=== PATIENT | female | born 1935 | race Hispanic/Latino ===

== ENCOUNTER 2018-01-13 08:43 | Outpatient (CLI) | payer MEDICARE, BC | END 2018-01-13 08:44 | disposition home or self-care (01) | LOC: BICMRI 08:43 | PROVIDERS: ATTEND Nurse Practitioner Family | DX: M47.26 Other spondylosis with radiculopathy, lumbar region (principal); E27.9 Disorder of adrenal gland, unspecified | CPT/HCPCS: 72148 ==

== ENCOUNTER 2018-02-05 15:54 | Outpatient (CLI) | payer MEDICARE, BC ==
--- NOTE | 2018-02-05 16:24 | RAD ---
RADIOGRAPH LEFT HIP TWO VIEWS: Date: 02-05-18 History: 83-year-old female with left hip pain. FINDINGS: Femoral head contour is maintained. Hip joint space is maintained. Minimal or no subcapital osteophyt osis. No large subchondral cysts. No fracture or dislocation. Degenerative disc disease noted in the lower lumbar spine. IMPRESSION: 1. Negative left hip. 2. Lower lumbar spondylosis. POS: [facility]
--- NOTE | 2018-02-05 16:26 | RAD ---
THREE VIEWS LUMBAR SPINE: History: Low back pain, M54.5 FINDINGS: Lateral, flexion and extension views of the lumbar spine. Images demonstrate five non rib bearing lumbar vertebrae. There is disc space height loss with anteri or and posterior osteophytes at L2-3, L3-4, L4-5, and L5-S1. Findings compatible with changes of spon dylosis. No evidence of reema or retrolisthesis seen on flexion or extension views. Atherosclerotic changes of the abdominal aorta seen. IMPRESSION: Extensive mid and lower lumbar changes of spondylosis. POS: [facility]
== END 2018-02-05 15:55 | disposition home or self-care (01) ==
LOC: TBSIIMAG 15:54
PROVIDERS: ATTEND Neurological Surgery
DX: M54.5 Low back pain (principal); M47.896 Other spondylosis, lumbar region
CPT/HCPCS: 72100

== ENCOUNTER 2018-03-16 10:16 | Outpatient (CLI) | payer MEDICARE, BC ==
[2018-03-16 12:45] LABS: Mean Corpuscular HGB CONC 34.5 g/dL (32.0-36.0); Mean Corpuscular Volume 92.7 fl (81.0-99.0); Mean Platelet Volume 8.1 fL (7.4-10.4); Platelet Count 289 thou/uL (130-400); RBC Distribution Width 11.2 % (11.5-14.5); Red Blood Cell (RBC) Count 3.75 mill/uL (4.20-5.40); White Blood Cell (WBC) Count 8.2 thou/uL (4.8-10.8)
[2018-03-16 12:52] LABS: PTT 29.5 SEC (22.9-36.1)
[2018-03-16 12:53] LABS: Prothrombin Time 13.7 SEC (12.0-14.7)
[2018-03-16 21:14] LABS: Anion Gap 11 mmol/L (10-20); BUN (Urea Nitrogen) 15 mg/dL (9.8-20.1); Calc. Creatinine Clearance 0 mL/min (70-130); Calcium 9.8 mg/dL (7.8-10.44); Carbon Dioxide 26 mmol/L (23-31); Chloride 105 mmol/L (98-107); Estimated GFR-MDRD 53; Glucose 124 mg/dL (83-110); Potassium 3.6 mmol/L (3.5-5.1); Sodium 138 mmol/L (136-145)
--- NOTE | 2018-03-16 23:49 | EKG ---
Test Reason : Blood Pressure : / mmHG Vent. Rate : 069 BPM Atrial Rate : 069 BPM P-R Int : 158 ms QRS Dur : 086 ms QT Int : 416 ms P-R-T Axes : 033 -47 046 degrees QTc Int : 445 ms Normal sinus rhythm Left anterior fascicular block Abnormal ECG When compared with ECG of 26-MAR-2016 07:43, Left anterior fascicular block is now Present Confirmed by REMI RIVAS, SValerie ([id number]) on 03/16/2018 11:49:34 PM Referred By: STACIA Confirmed By:DR. Jarod KHALIL MD
== END 2018-03-16 10:17 | disposition home or self-care (01) ==
LOC: LABBT 10:16
PROVIDERS: ATTEND Neurological Surgery
DX: Z01.812 Encounter for preprocedural laboratory examination (principal); M48.061 Spinal stenosis, lumbar region without neurogenic claudication
CPT/HCPCS: 80048; 85027; 85610; 85730; 93005; 93010

== ENCOUNTER 2018-03-19 05:37 | Inpatient (IN) | payer MEDICARE, BC ==
[2018-03-16 10:42] VITALS: BMI 35.6
[2018-03-19] MEDS ORDERED: Sodium Chloride 0.9% 30 ML ONE (06:17)
[2018-03-19] MEDS ORDERED: Thrombin 5000 UNITS/5 ML VIAL ONE (06:17)
[2018-03-19] MEDS ORDERED: Bupivacaine HCl 0.5%/Epinephrine 1:200,000/PF 30 ml Vial ONE (06:17)
[2018-03-19] MEDS ORDERED: CEFAZOLIN/Water 2 GM/20 ML SYRINGE ONE (06:25)
[2018-03-19] MEDS ORDERED: Famotidine/PF 20 mg/2ml Vial ONE (06:47)
[2018-03-19] MEDS ORDERED: Fentanyl 100 MCG/2 ML VIAL ONE ×2 (06:55→08:31)
--- NOTE | 2018-03-19 07:19 | HP ---
REASON FOR ADMISSION: Lumbar stenosis. Here for surgery. HISTORY OF PRESENT ILLNESS: Ms. Casper is a very pleasant 83-year-old woman whose grandson works in our ICU, comes in with a multiple month history of low back pain and some worsening neurogenic margy ication manifest mostly in L4 and L5 dermatomes on the legs. Anytime she stands for more than a few minutes or walks over 50 yards the pain is made worse. She leans to the right and forward for relief , she gets relief sitting down. MR imaging has revealed some significant lumbar stenosis and we are here to offer her surgery for correction thereof. PAST MEDICAL HISTORY: Diabetes, hypertension, hypothyroidism, hypercholesterolemia, mitral valve pro lapse, diverticulitis, gastroesophageal reflux, carpal tunnel. PAST SURGICAL HISTORY: Includes a hysterectomy, left eye lens implant, right carpal tunnel release, cyst removal, bilateral knee replacements, heart catheterization and colonoscopy. HOSPITALIZATIONS: Hospitalization includes surgeries above as well as for diverticulosis and some bl eeding per rectum. SOCIAL HISTORY: Ms. Casper has a large family here for support this morning. Her grandson works in our ICU. She does not use tobacco or alcohol. She is , retired. FAMILY HISTORY: Significant for diabetes in her mother. There are family members with hypertension, diabetes, heart disease, arthritis and stroke. MEDICATIONS: Amlodipine, isosorbide mononitrate, metformin, pravastatin, levothyroxine, glimepiride, losartan, mupirocin calcium ointment, furosemide, gabapentin. ALLERGIES: IODINE, TINCTURE of BENZOIN. REVIEW OF SYSTEMS: Otherwise negative. PHYSICAL EXAMINATION: GENERAL: Ms. Casper This is awake and alert. She is cognitively intact. Her speech is fluent. NEURO: Cranial nerves are intact. There is no lateralizing motor or sensory deficit. She has marilyn h alternating rapid motions. She has no neglect on either side. There is no lateralizing motor defi cit. She has good strength in iliopsoas, quadriceps, hamstrings, anterior tibia and EHL, there is sl ight loss of dermatomal sensation in the left leg and what appears to be L4/L5 dermatome. Reflexes a re hypoactive, but symmetric. There is no clonus. FINDINGS AND TEST RESULTS: MRI of the lumbar spine shows moderate stenosis at L1-2, severe stenosis L2-L3 and 3-4. She has some lateral recess disease at L4-5 on the left. I offered to decompress the stenotic segments of her lumbar spine. IMPRESSION: Lumbar spinal stenosis, symptomatic causing neurogenic claudication. PLAN: Operative decompression of lumbar spine. We will do that today. We will address levels where there is compression present. Given her past medical history and age, she would likely benefit from overnight observation and an Internal Medicine consultation. When she is safe for activities of [facility] living she can be discharged, perhaps as early as tomorrow.
[2018-03-19] MEDS ORDERED: Albumin 5% 500 ML ONE (10:27)
[2018-03-19] MEDS ORDERED: HYDROmorphone 2 MG/ML VIAL SLOW IVP PRN (11:08)
[2018-03-19] MEDS ORDERED: Ondansetron HCl/PF 4 MG/2 ML Vial IVP PRN ×2 (11:08→11:12)
[2018-03-19] MEDS ORDERED: Promethazine HCl 25 MG/ML VIAL SLOW IVP PRN (11:08)
[2018-03-19] MEDS ORDERED: Promethazine HCl 25 MG/ML VIAL IM PRN (11:08)
[2018-03-19] MEDS ORDERED: Meperidine HCl/PF 25 MG/ML VIAL SLOW IVP PRN (11:08)
[2018-03-19] MEDS ORDERED: Morphine Sulfate 2 MG/ML SYRINGE SLOW IVP PRN (11:08)
[2018-03-19] MEDS ORDERED: Bisacodyl 10 MG SUPP PR PRN (11:12)
[2018-03-19] MEDS ORDERED: Morphine 4 MG/ML VIAL SLOW IVP PRN (11:12)
[2018-03-19] MEDS ORDERED: tiZANidine HCl 4 MG TAB PO PRN (11:12)
[2018-03-19] MEDS ORDERED: Prochlorperazine 10 MG/2 ML VIAL IM PRN (11:12)
[2018-03-19] MEDS ORDERED: Promethazine HCl 12.5 MG SUPP PR PRN (11:12)
[2018-03-19] MEDS ORDERED: traMADol HCl 50 MG TAB PO PRN (11:12)
[2018-03-19] MEDS ORDERED: Promethazine 25 MG TAB PO PRN (11:12)
[2018-03-19] MEDS ORDERED: Acetaminophen/Codeine 30-300mg Tablet PO PRN (11:12)
[2018-03-19 11:14] LABS: Hemoglobin 9.1 g/dL (12.0-16.0)
[2018-03-19] MEDS ORDERED: HYDROmorphone 0.5 MG/0.5 ML SYRINGE ONE (11:24)
[2018-03-19] MEDS ORDERED: Promethazine HCl 25 MG/ML VIAL ONE (12:04)
--- NOTE | 2018-03-19 13:05 | OP ---
DATE OF PROCEDURE: 03/19/2018 SURGEON: Neelima Vaughn M.D. LANGUAGE TUTOR: LACI Romero. PREOPERATIVE INDICATION: Treat pain, prevent neurological deterioration. PREOPERATIVE DIAGNOSES: Multilevel lumbar stenosis with neurogenic claudication affecting the left g reater than right lower extremities. POSTOPERATIVE DIAGNOSIS: Multilevel lumbar stenosis with neurogenic claudication affecting the left greater than right lower extremities. OPERATIVE PROCEDURE: Decompressive laminectomy, medial facetectomy, foraminotomy L1-2, L2-3, L3-4, L 4-5. Operating microscope. PREOPERATIVE MEDICATION: Ancef 2 grams IV. DRAIN NUMBER: Zero. DRAIN TYPE: None. PREOPERATIVE MEDICATION: Ancef 2 grams IV. OPERATIVE DICTATION: The patient was brought to the operating room. General endotracheal anesthesia was induced. The patient was positioned prone on the operating table with her chest and hips suppor deb by gel-filled chest rolls. A lateral fluoro radiograph was used to plan our incision. The lumba r skin was sterilely prepped and draped. We opened with a 10 blade knife and controlled bleeding wit h bipolar and monopolar cautery. We used monopolar cautery to dissect through subcutaneous tissues t o the thoracodorsal fascia. We incised the fascia in the midline and reflected the paraspinal muscle s off the spinous process and lamina of L1, L2, L3, L4 and the top of L5. Self-retaining retractors were placed and a lateral fluoro radiograph confirmed the levels upon which we were operating. We th en used an Adson rongeur to remove the spinous process of L1, L2, L3, L4 and the top of L5. Using Ke rrison rongeurs, we fashioned a laminectomy down the midline. We widened our laminectomy defect by p erforming medial facetectomies and undermining the lateral recesses. At L4-L5, the dura was adherent to the facet joint and we had to bring the operating microscope in the field. Under microscopic navigation and using microsurgical techniques, we freed the dura of its attachment to the lateral portion of the spinal canal. There was a small durotomy that we encountered. Under t he operative microscope we sewed this in interrupted fashion with 6-0 Prolene suture and the closure was watertight by Valsalva. We continued with our decompression and made foraminotomies over the exi ting nerve roots until a Perry ball probe could pass through the lateral recess and out the foramen with the L1, L2, L3, L4 and L5 nerve roots on both sides. We irrigated copiously with bacitracin irr igation. We waxed the bone edges. We irrigated once again with bacitracin irrigation and then reinf orced our dural closure with DuraSeal tissue sealant. We closed the wound in anatomic layers after a pplying vancomycin powder. We applied a sterile dressing. This was a clean case and no contaminatio n.
[2018-03-19] MEDS ORDERED: PHENYLEPHRINE-NS 100 MCG/ML 10 ML SYRINGE ONE (13:54)
[2018-03-19] MEDS ORDERED: PROPOFOL 200 MG/20 ML VIAL ONE (13:54)
[2018-03-19] MEDS ORDERED: Ondansetron HCl/PF 4 MG/2 ML Vial ONE (13:54)
[2018-03-19] MEDS ORDERED: Glycopyrrolate 0.2 MG/ML 5 ML SYRINGE ONE (13:54)
[2018-03-19] MEDS ORDERED: ePHEDrine/0.9% NaCl/PF SYRINGE 50 mg/10 ml ONE (13:54)
[2018-03-19] MEDS ORDERED: Metoclopramide HCl 10 MG/2 ML VIAL ONE (13:54)
[2018-03-19] MEDS ORDERED: Lidocaine 1% PF 5 ML VIAL ONE (13:54)
[2018-03-19] MEDS: CEFAZOLIN/Water 2 GM/20 ML SYRINGE SLOW IVP SCH ×2 (15:16→22:56)
[2018-03-19] MEDS ORDERED: Dextrose 5% in Water 1,000 ML IV PRN (15:44)
[2018-03-19] MEDS ORDERED: Dextrose 50% Abboject 50 ML SYRINGE SLOW IVP PRN (15:44)
[2018-03-19] MEDS ORDERED: Acetaminophen 325 MG TAB PO PRN (15:47)
[2018-03-19] MEDS: Morphine 4 MG/ML VIAL SLOW IVP PRN ×2 (17:25→21:10)
[2018-03-19] MEDS: Sodium Chloride 0.9% 1,000 ML IV SCH (17:28)
[2018-03-20] MEDS: Morphine 4 MG/ML VIAL SLOW IVP PRN ×2 (04:00→06:50)
[2018-03-20 05:27] LABS: #Eosinphils 0.1 thou/uL (0.0-0.7); #Lymphocytes 1.3 thou/uL (1.20-3.40); #Monocytes 0.5 thou/uL (0.11-0.59); #Neutrophils 6.6 thou/uL (1.40-6.50); %Basophils 0.3 % (0.0-1.0); %Eosinophils 1.3 % (0.0-10.0); %Lymphocytes 15.6 % (21.0-51.0); %Monocytes 5.6 % (0.0-10.0); %Neutrophils 77.1 % (42.0-75.0); Hemoglobin 8.9 g/dL (12.0-16.0); Mean Corpuscular HGB CONC 34.4 g/dL (32.0-36.0); Mean Corpuscular Volume 93.2 fl (81.0-99.0); Mean Platelet Volume 7.6 fL (7.4-10.4); Platelet Count 202 thou/uL (130-400); RBC Distribution Width 11.3 % (11.5-14.5); Red Blood Cell (RBC) Count 2.78 mill/uL (4.20-5.40); White Blood Cell (WBC) Count 8.5 thou/uL (4.8-10.8)
[2018-03-20] MEDS: CEFAZOLIN/Water 2 GM/20 ML SYRINGE SLOW IVP SCH (06:41)
[2018-03-20] MEDS: HumaLOG 300 UNITS/3 ML VIAL SC PRN ×3 (06:52→21:10)
[2018-03-20] MEDS: Sodium Chloride 0.9% 1,000 ML IV SCH ×2 (07:18→21:04)
[2018-03-20] MEDS: Amlodipine 10 MG TAB PO SCH (08:57)
[2018-03-20] MEDS: Gabapentin 300 MG CAP PO SCH (08:57)
[2018-03-20] MEDS: Acetaminophen/Codeine 30-300mg Tablet PO PRN ×4 (08:57→21:10)
[2018-03-20] MEDS: Ferrous Sulfate 325 MG TAB PO SCH (08:57)
[2018-03-20] MEDS: Furosemide 20 MG TAB PO SCH (08:57)
[2018-03-20] MEDS: cloNIDine 0.1 MG TAB PO SCH (08:57)
--- NOTE | 2018-03-20 12:20 | PDOC.PN ---
- Subjective Encounter Start Date: 03/20/18 Encounter Start Time: 09:15 Pt doing well, slept well, deneis SOSA, noback pain, no incisional pain. Pt bathed and linens being changed because she bled through her dressing, sheets and pad. No F/C, no N/V/D/C, no CP or SOB. Glucose has been better since starting insulin All systems reviewed and neg x as per HPI - Objective MAR Reviewed: Yes Vital Signs & Weight: Vital Signs (12 hours) Temp Pulse Resp BP Pulse Ox 03/20/18 11:29 99.0 F 77 16 122/72 91 L 03/20/18 08:59 99.7 F H 79 20 125/68 95 03/20/18 08:57 79 03/20/18 07:54 99 F 79 14 03/20/18 03:53 99 F 79 14 134/66 93 L Weight Weight 189 lb I&O: 03/19/18 03/20/18 03/21/18 06:59 06:59 06:59 Intake Total 1450 Output Total 1850 Balance -400 Result Diagrams: 03/20/18 05:03 Additional Labs: Accuchecks 03/20/18 03/20/18 03/19/18 10:46 06:02 20:57 POC Glucose 225 H 171 H 149 H 03/19/18 17:21 POC Glucose 183 H Phys Exam - Physical Examination Constitutional: NAD HEENT: PERRLA, moist MMs, sclera anicteric, oral pharynx no lesions Neck: no nodes, no JVD, supple, full ROM Respiratory: no wheezing, no rales, no rhonchi, clear to auscultation bilateral Cardiovascular: RRR, no significant murmur, no rub Gastrointestinal: soft, non-tender, no distention, positive bowel sounds Musculoskeletal: no edema, pulses present Neurological: non-focal, normal sensation, moves all 4 limbs Lymphatic: no nodes Psychiatric: normal affect, A&O x 3 Skin: no rash, normal turgor, cap refill <2 seconds Deviation from normal: dressing clean, but just changed Dx/Plan (1) DJD (degenerative joint disease) Code(s): M19.90 - UNSPECIFIED OSTEOARTHRITIS, UNSPECIFIED SITE Status: Chronic Qualifiers: Osteoarthritis location: multiple joints Osteoarthritis type: primary Qualified Code(s): M15.0 - Primary generalized (osteo)arthritis (2) Diabetes type 2, controlled Code(s): E11.9 - TYPE 2 DIABETES MELLITUS WITHOUT COMPLICATIONS Status: Chronic Qualifiers: Diabetes mellitus long term care pharmacist insulin use: without long term care pharmacist use Diabetes mellitus complication status: without complication Qualified Code(s): E11.9 - Type 2 diabetes mellitus without complications (3) Diverticulosis Code(s): K57.90 - DVRTCLOS OF INTEST, PART UNSP, W/O PERF OR ABSCESS W/O BLEED Status: Chronic (4) GERD (gastroesophageal reflux disease) Code(s): K21.9 - GASTRO-ESOPHAGEAL REFLUX DISEASE WITHOUT ESOPHAGITIS Status: Chronic (5) HTN (hypertension) Code(s): I10 - ESSENTIAL (PRIMARY) HYPERTENSION Status: Chronic (6) Hypothyroidism Code(s): E03.9 - HYPOTHYROIDISM, UNSPECIFIED Status: Chronic (7) Obesity (BMI 30-39.9) Code(s): E66.9 - OBESITY, UNSPECIFIED Status: Chronic (8) Status post lumbar laminectomy Code(s): Z98.890 - OTHER SPECIFIED POSTPROCEDURAL STATES Status: Acute Comment: post L1-L5 lumbar laminectomy, NSG following - Plan * . restart metformin adn glyburide, continue SSI as needed, continue home BP meds, home ? tomorrow per NSG
--- NOTE | 2018-03-20 12:54 | CON ---
DATE OF CONSULTATION: 03/19/2018 INITIAL INPATIENT CONSULT NOTE TIME OF SERVICE: 15:00 CONSULTING PHYSICIAN: Dr. Vaughn. REASON FOR CONSULTATION: Medical management post-laminectomy. HISTORY OF PRESENT ILLNESS: Ms. Casper is a pleasant 83-year-old female who is posto p day #0 from an L1-L5 laminectomy. She had no noted intraoperative complications other than a dural tear status post repair with good stoppage of CSF leak. Postop, she has a little bit of a headache. She denies any nausea or vomiting. No chest pain or gogo rtness of breath. No fevers or chills. No cough or sputum production. She does have history of diabetes, high blood pressure, hypothyroidism, GERD, peptic ulcer disease an d iron deficiency anemia. We have been asked to manage medically her diabetes and other medical problems. She has no other current complaints. PAST MEDICAL HISTORY: As above. PAST SURGICAL HISTORY: 1. EGD/colon in 03/2016. 2. Carpal tunnel release in 06/2015. 3. Hysterectomy in 1974. 4. Cholecystectomy in 1975. 5. Right TKA in 2011. 6. Left TKA in 2006. 7. Lumbar laminectomy in 2003. 8. Right carpal tunnel release in 2013. 9. PTCA, but no stents in 2015. HOME MEDICATIONS: 1. Naproxen p.r.n. 2. Vitamin D3. 3. Vitamin B12. 4. Isosorbide mononitrate 30 mg p.o. daily. 5. Glimepiride 4 mg p.o. q.a.m. 6. Levothyroxine 50 mcg daily. 7. Aspirin 81 mg daily. 8. Losartan 50 mg p.o. at bedtime. 9. Metformin 1000 mg p.o. b.i.d. with meals. 10. Naproxen 220 mg p.o. as needed, which is currently on hold. 11. Pravachol 40 mg p.o. at bedtime, is currently on hold. 12. Amlodipine 10 mg p.o. q.a.m., continued. 13. Catapres 0.1 mg p.o. q.a.m., continued. 14. Iron sulfate 325 mg daily, continued. 15. Lasix 20 mg p.o. q.a.m., continued. 16. Gabapentin 300 mg p.o. q.a.m. 17. Protonix 40 mg p.o. q.a.m. ALLERGIES: BENZOIN, IODINE, LATEX. All cause rash. FAMILY HISTORY: Negative for clotting or bleeding disorder. No immune dysfunction. SOCIAL HISTORY: Significant for occasional beer. In fact, she asked if she could have one now in a joking manner. Does not smoke. Does not use drugs. FAMILY HISTORY: One of her family members works here in the hospital. REVIEW OF SYSTEMS: All systems reviewed and negative except as stated as per HPI. PHYSICAL EXAMINATION: VITAL SIGNS: Temperature current 97.6, pulse 65, blood pressure is 127/66, respiratory rate 20, O2 s at 98% on room air. GENERAL: She is awake. She is alert. She is oriented x3. She is an obese female wh o appears age appropriate. She appears to be in no acute distress. HEENT: Normocephalic, atraumatic. Pupils equal, round, reactive bilaterally. Mucous membranes mois t. There is no visible lesion, no thrush. NECK: Supple. She has no lymphadenopathy, no JVD, no thyromegaly. She has normal carotid upstrokes without bruits. LUNGS: Clear. She has good air movement. Symmetrical chest excursion. There are no wheezes, no ra les, no rhonchi. No prolonged expiratory phase. CARDIOVASCULAR: Normal S1 and S2. No S3 or S4. She had a regular rhythm with normal rate. No murm urs. ABDOMEN: Soft, it is nontender, nondistended. She had hyperactive bowel sounds present in all quadr ants. There is no rebound, rigidity or guarding. EXTREMITIES: Showed no cyanosis, no clubbing. She had trace pedal edema. SKIN: Warm, moist and well perfused. She has no rashes, no lesions. Her postop dressing is clean, dry, and intact without any strike through. MUSCULOSKELETAL: Normal to inspection. Large joints appear normal. There are no palpable effusions . No inflammation. NEUROLOGIC: Shows cranial nerves II-XII are grossly intact. She has no focal deficits, symmetrical strength 5/5 and normal speech pattern. LABORATORY DATA: Preop labs done showed sodium 138, potassium 3.6, chloride 105, bicarb 26, BUN 15, creatinine 1.01, glucose 127, calcium 9.8. CBC showed a white count of 8.2, hemoglobin is 12.0, hematocrit of 34.8, platelet count is 289,000. Postop her hemoglobin is 9.1. INR was 1.0. ASSESSMENT AND PLAN: 1. Diabetes mellitus type 2, we will continue home medications except for her glimepiride and her me tformin. We will use sliding scale insulin for correction tonight, once she is eating we will restar t her home medications. 2. Hypertension, on losartan, which is currently on hold and Lasix. We will resume those in the mor [place]. 3. Peptic ulcer disease, on Protonix. We will continue. 4. Hypothyroidism, on levothyroxine. We will continue. 5. Iron deficiency anemia, on iron replacement which we will continue. 6. Degenerative joint disease, status post L1 through L5 lumbar laminectomy. Routine postoperative care and immobilized per Neurosurgery Team and disposition per them. The patient plans to go home wi th outpatient therapy. We will defer to then timing.
[2018-03-20] MEDS: metFORMIN 500 MG TAB PO SCH (17:55)
[2018-03-20] MEDS ORDERED: Losartan 25 MG TAB PO SCH (21:00)
[2018-03-21] MEDS: Acetaminophen/Codeine 30-300mg Tablet PO PRN (01:38)
[2018-03-21] MEDS ORDERED: Levothyroxine Sodium 50 MCG TAB PO SCH (06:00)
[2018-03-21] MEDS: HumaLOG 300 UNITS/3 ML VIAL SC PRN (06:36)
[2018-03-21] MEDS ORDERED: Glimepiride 4 MG TAB PO SCH (07:30)
[2018-03-21] MEDS: metFORMIN 500 MG TAB PO SCH (07:38)
[2018-03-21] MEDS: Ferrous Sulfate 325 MG TAB PO SCH (07:38)
[2018-03-21] MEDS: Gabapentin 300 MG CAP PO SCH (07:39)
[2018-03-21] MEDS: cloNIDine 0.1 MG TAB PO SCH ×2 (07:39→08:01)
[2018-03-21] MEDS: Amlodipine 10 MG TAB PO SCH (07:39)
[2018-03-21] MEDS: Furosemide 20 MG TAB PO SCH (07:39)
[2018-03-21 07:51] LABS: #Eosinphils 0.3 thou/uL (0.0-0.7); #Lymphocytes 1.3 thou/uL (1.20-3.40); #Monocytes 0.5 thou/uL (0.11-0.59); #Neutrophils 7.8 thou/uL (1.40-6.50); %Basophils 0.3 % (0.0-1.0); %Eosinophils 2.6 % (0.0-10.0); %Lymphocytes 13.5 % (21.0-51.0); %Monocytes 4.6 % (0.0-10.0); %Neutrophils 79.1 % (42.0-75.0); Hemoglobin 8.6 g/dL (12.0-16.0); Mean Corpuscular HGB CONC 34.2 g/dL (32.0-36.0); Mean Corpuscular Volume 93.7 fl (81.0-99.0); Mean Platelet Volume 7.2 fL (7.4-10.4); Platelet Count 199 thou/uL (130-400); RBC Distribution Width 11.2 % (11.5-14.5); Red Blood Cell (RBC) Count 2.69 mill/uL (4.20-5.40); White Blood Cell (WBC) Count 9.8 thou/uL (4.8-10.8)
--- NOTE | 2018-03-21 09:54 | RAD ---
CHEST 1 VIEW: History Fever. COMPARISON: 03/26/16. FINDINGS: Slight elongation of the aorta. Atherosclerosis of the aortic knob. Normal cardiac silhouette. The pulmonary vessels and hilum are normal. No consolidation or mass. No pneumothorax or osseous abnor malities. Previous left rotator cuff repair is noted. IMPRESSION: 1. No acute cardiopulmonary process. 2. Atherosclerosis of the aorta. POS: [facility]
[2018-03-21 10:11] LABS: Bilirubin Negative (Negative); Blood, Urine Negative (Negative); Clarity CLEAR (Clear); Glucose, Urine (Dipstick) Negative (Negative); Leukocyte Negative (Negative); Nitrite Negative (Negative); Protein, Urine (Dipstick) Negative (Neg-Trace); Specific Gravity, Urine 1.012 (1.002-1.036); Urobilinogen 0.2 mg/dL (0.2-1.0)
[2018-03-21 10:15] LABS: Bacteria/HPF None Seen HPF (None Seen); Hyaline Casts/LPF 0-3 HYALINE CAST LPF (0-3 Hyaline); Pathc Cast-AUWi Flag 0.58 (0-2.49); RBC/HPF 0-3 HPF (0-3); Squamous Epithelial 0-3 HPF (0-3); WBC/HPF 0-3 HPF (0-3)
[2018-03-21] MEDS: Sodium Chloride 0.9% 1,000 ML IV SCH (10:19)
[2018-03-21 11:12] VITALS: BP 122/62; TEMP 99.6
--- NOTE | 2018-03-21 11:38 | PRG ---
DATE OF SERVICE: 03/21/2018 Ms. Casper is now 3 days status post lumbar spine surgery. She had been doing quite well over the l ast 24-48 hours. She had minimal pain. She has been ambulating in the hallways. She did have a low -grade fever this morning. She has had a cursory workup including UA and lab work, which were unrema rkable. She appears nontoxic and looks to feel well. She did have an episode of headache upon her l ast period of ambulation and she has had a small degree of bloody discharge in the bandage. I inspec deb that today and changed the bandage. I see no active leaking. I put a clean bandage on and I hav e elevated the head of her bed and she reports no postural headache at this time. We will continue t o keep the head of bed elevated, and if she has no headache, we will again ambulate her with a possib ility of her heading home either later today or tomorrow.
--- NOTE | 2018-03-21 13:33 | PDOC.PN ---
- Subjective Encounter Start Date: 03/21/18 Encounter Start Time: 10:30 Pt doing well, less bleeding, no fevers at present, 100.6 overnight. mitra po well. No N/V/d/c, no CP, no SOB, O2 sats 85% on RA when sleeping - now or just unknown. Seen by NSG team, keeping tonight All systems reviewed and neg x as per HPI - Objective MAR Reviewed: Yes Vital Signs & Weight: Vital Signs (12 hours) Temp Pulse Pulse Resp BP BP Pulse Ox 03/21/18 11:11 99.6 F 85 18 122/62 96 03/21/18 08:58 82 120/65 03/21/18 08:00 98.4 F 89 16 03/21/18 07:39 89 03/21/18 04:00 100.6 F H 89 16 111/64 93 L Pulse Ox 03/21/18 11:11 03/21/18 08:58 94 L 03/21/18 08:00 03/21/18 07:39 03/21/18 04:00 Weight Weight 189 lb I&O: 03/20/18 03/21/18 03/22/18 06:59 06:59 06:59 Intake Total 1450 480 Output Total 1850 Balance -400 480 Result Diagrams: 03/21/18 07:34 Additional Labs: Accuchecks 03/21/18 03/21/18 03/20/18 11:06 06:35 20:49 POC Glucose 149 H 190 H 180 H 03/20/18 16:24 POC Glucose 175 H Phys Exam - Physical Examination Constitutional: NAD HEENT: PERRLA, moist MMs, sclera anicteric, oral pharynx no lesions Neck: no nodes, no JVD, supple, full ROM Respiratory: no wheezing, no rales, no rhonchi, clear to auscultation bilateral Cardiovascular: RRR, no significant murmur, no rub Gastrointestinal: soft, non-tender, no distention, positive bowel sounds Musculoskeletal: no edema, pulses present Neurological: non-focal, normal sensation, moves all 4 limbs Lymphatic: no nodes Psychiatric: normal affect, A&O x 3 Skin: no rash, normal turgor, cap refill <2 seconds Deviation from normal: dressing C/D/I, but just changed Dx/Plan (1) Diabetes type 2, controlled Code(s): E11.9 - TYPE 2 DIABETES MELLITUS WITHOUT COMPLICATIONS Status: Chronic Qualifiers: Diabetes mellitus penitentiary insulin use: without rodent exterminator use Diabetes mellitus complication status: without complication Qualified Code(s): E11.9 - Type 2 diabetes mellitus without complications Comment: CCm. sugars okay, amaryl dose just given (2) Diverticulosis Code(s): K57.90 - DVRTCLOS OF INTEST, PART UNSP, W/O PERF OR ABSCESS W/O BLEED Status: Chronic (3) DJD (degenerative joint disease) Code(s): M19.90 - UNSPECIFIED OSTEOARTHRITIS, UNSPECIFIED SITE Status: Chronic Qualifiers: Osteoarthritis location: multiple joints Osteoarthritis type: primary Qualified Code(s): M15.0 - Primary generalized (osteo)arthritis (4) GERD (gastroesophageal reflux disease) Code(s): K21.9 - GASTRO-ESOPHAGEAL REFLUX DISEASE WITHOUT ESOPHAGITIS Status: Chronic (5) HTN (hypertension) Code(s): I10 - ESSENTIAL (PRIMARY) HYPERTENSION Status: Chronic (6) Hypothyroidism Code(s): E03.9 - HYPOTHYROIDISM, UNSPECIFIED Status: Chronic (7) Obesity (BMI 30-39.9) Code(s): E66.9 - OBESITY, UNSPECIFIED Status: Chronic (8) Status post lumbar laminectomy Code(s): Z98.890 - OTHER SPECIFIED POSTPROCEDURAL STATES Status: Acute Comment: post L1-L5 lumbar laminectomy, NSG following - Plan cont current plan of care, plan discussed w/ family, PT/OT, respiratory therapy , out of bed/ambulate * .
== END 2018-03-21 16:27 | disposition home or self-care (01) | DRG 517 ==
LOC: SDC 05:37 → SURG A 11:12
PROVIDERS: ADMIT Neurological Surgery; ATTEND Neurological Surgery
PROC: 01NB0ZZ Release Lumbar Nerve, Open Approach (ICD-10-PCS; principal; 2018-03-19)
DX: M48.062 Spinal stenosis, lumbar region with neurogenic claudication (principal); E11.9 Type 2 diabetes mellitus without complications; I10 Essential (primary) hypertension; E03.9 Hypothyroidism, unspecified; E78.5 Hyperlipidemia, unspecified; K21.9 Gastro-esophageal reflux disease without esophagitis; Z96.653 Presence of artificial knee joint, bilateral; Z79.899 Other long term (current) drug therapy; Z79.84 Long term (current) use of oral hypoglycemic drugs; Z91.048 Other nonmedicinal substance allergy status; Z88.8 Allergy status to other drugs, medicaments and biological substances; R51 Headache; Z91.040 Latex allergy status; D50.9 Iron deficiency anemia, unspecified; K57.90 Diverticulosis of intestine, part unspecified, without perforation or abscess without bleeding; M19.90 Unspecified osteoarthritis, unspecified site
CPT/HCPCS: 36415; 36416; 71045; 76001; 81001; 85014; 85018; 85025; A4216; G8978-GP-CJ; G8979-GP-CI; J0131; J0670; J1170; J2001; J2270; J2405; J2550; J2704; J2765; J3010; J3370; J3490; P9045; S0028

== ENCOUNTER 2018-05-20 08:38 | Outpatient (CLI) | payer MEDICARE, BC ==
--- NOTE | 2018-05-20 09:32 | RAD ---
LUMBAR SPINE 3 VIEWS: HISTORY: Followup surgery. Leg pain. COMPARISON: Radiographs 02/05/18. FINDINGS: There is moderate reversed S-shaped scoliosis of the thoracolumbar spine. No acute fracture or malal ignment. Laminectomy changes are present throughout the lumbar spine. Moderate vascular calcifications. Asymmetric right worse than left SI joint degenerative disease. S evere degenerative disease of the pubic symphysis. IMPRESSION: Laminectomy changes. POS: [facility]
== END 2018-05-20 08:39 | disposition home or self-care (01) ==
LOC: TBSIIMAG 08:38
PROVIDERS: ATTEND Neurological Surgery
DX: M54.16 Radiculopathy, lumbar region (principal); M54.5 Low back pain; Z98.890 Other specified postprocedural states
CPT/HCPCS: 72100

== ENCOUNTER 2018-05-31 09:00 | Inpatient (IN) | payer MEDICARE, BC ==
[2018-05-31] MEDS ORDERED: Ondansetron HCl/PF 4 MG/2 ML Vial ONE (09:32)
[2018-05-31 09:57] LABS: #Basophils 0.1 thou/uL (0.0-0.2); #Eosinphils 0.2 thou/uL (0.0-0.7); #Lymphocytes 2.1 thou/uL (1.20-3.40); #Monocytes 0.4 thou/uL (0.11-0.59); #Neutrophils 5.7 thou/uL (1.40-6.50); %Basophils 0.9 % (0.0-1.0); %Eosinophils 2.9 % (0.0-10.0); %Lymphocytes 24.2 % (21.0-51.0); %Monocytes 4.8 % (0.0-10.0); %Neutrophils 67.2 % (42.0-75.0); Hemoglobin 10.9 g/dL (12.0-16.0); Mean Corpuscular HGB CONC 34.4 g/dL (32.0-36.0); Mean Corpuscular Hemoglobin 31.4 pg (27.0-31.0); Mean Corpuscular Volume 91.2 fL (78.0-98.0); Mean Platelet Volume 7.4 fL (7.4-10.4); Platelet Count 317 thou/uL (130-400); RBC Distribution Width 11.3 % (11.5-14.5); Red Blood Cell (RBC) Count 3.46 mill/uL (4.20-5.40); White Blood Cell (WBC) Count 8.4 thou/uL (4.8-10.8)
[2018-05-31 10:18] LABS: ALT (SGPT) 16 U/L (8-55); AST (SGOT) 17 U/L (5-34); Albumin 4.3 g/dL (3.4-4.8); Alkaline Phosphatase 68 U/L (40-150); Anion Gap 15 mmol/L (10-20); BUN (Urea Nitrogen) 19 mg/dL (9.8-20.1); Bilirubin, Total 0.5 mg/dL (0.2-1.2); Calc. Creatinine Clearance 0 mL/min (70-130); Calcium 9.3 mg/dL (7.8-10.44); Carbon Dioxide 21 mmol/L (23-31); Chloride 105 mmol/L (98-107); Estimated GFR-MDRD 50; Glucose 181 mg/dL (83-110); Lipase 24 U/L (8-78); Potassium 3.9 mmol/L (3.5-5.1); Protein, Total 7.3 g/dL (6.0-8.3); Sodium 137 mmol/L (136-145)
--- NOTE | 2018-05-31 11:00 | CT ---
CT ABODMEN AND PELVIS WITHOUT CONTRAST: Date: 05/31/18 HISTORY: Rectal bleeding. FINDINGS: Comparison made with exam of 07/09/16. The lung bases are unremarkable. No free air or free fluid is seen in the abdomen or pelvis. There i s fatty infiltration of the liver. The left adrenal adenoma is stable. No calculi seen in the kidneys, ureters, or the urinary bladder. No hydroureteronephrosis is seen on either side. There are vascular calcifications without evidence of aneurysmal dilatation of the abdom inal aorta. There are degenerative changes in the spine. Extensive colonic diverticulosis is again se en without evidence of diverticulitis. The patient is post hysterectomy, appendectomy, and cholecyste ctomy. IMPRESSION: 1. No CT evidence of urinary tract calculi or obstruction. 2. Colonic diverticulosis. 3. Stable left adrenal adenoma. 4. Fatty liver. POS: [facility]
[2018-05-31 12:41] LABS: Bilirubin Negative (Negative); Blood, Urine Trace (Negative); Clarity CLOUDY (Clear); Glucose, Urine (Dipstick) Negative (Negative); Leukocyte Small (Negative); Nitrite Positive (Negative); Protein, Urine (Dipstick) Negative (Neg-Trace); Urobilinogen 0.2 mg/dL (0.2-1.0)
[2018-05-31 12:42] LABS: Bacteria/HPF 3+ HPF (None Seen); Hyaline Casts/LPF 0-3 HYALINE CAST LPF (0-3 Hyaline); Pathc Cast-AUWi Flag 0.14 (0-2.49); RBC/HPF 0-3 HPF (0-3); Squamous Epithelial 0-3 HPF (0-3)
[2018-05-31 12:50] VITALS: BMI 34.4
[2018-05-31] MEDS ORDERED: Dextrose 5 % And 0.9 % NaCl 1,000 ML IV SCH (13:00)
[2018-05-31] MEDS ORDERED: Dextrose 5% in Water 1,000 ML IV PRN (16:57)
[2018-05-31] MEDS ORDERED: Acetaminophen 325 MG TAB PO PRN (16:57)
[2018-05-31] MEDS ORDERED: Bisacodyl 5 MG TAB PO PRN (16:57)
[2018-05-31] MEDS ORDERED: Dextrose 50% Abboject 50 ML SYRINGE SLOW IVP PRN (16:57)
[2018-05-31] MEDS ORDERED: HumaLOG 300 UNITS/3 ML VIAL SC PRN (16:57)
--- NOTE | 2018-05-31 17:47 | HP ---
PRIMARY CARE PROVIDER: Dr. Rudi Loaiza. CHIEF COMPLAINT: Hematochezia. HISTORY OF PRESENT ILLNESS: Ms. Casper is a pleasant 83-year-old lady who was seen at [facility] on 05/31/2018. She reports that she started having dark red stools since yesterday afternoon. She reports having mu ltiple bloody bowel movements. She denies any melena. She also reports left lower quadrant pain, sh ibll, 7/10, radiating to the back, on and off, better after a bowel movement, not accompanied by nause a or vomiting. She denies any fevers or chills. She denies any chest pain or lightheadedness. She denies any nausea or vomiting. REVIEW OF SYSTEMS: All other systems reviewed and found to be negative. PAST MEDICAL HISTORY: Diverticulosis, dyslipidemia, colon polyps, gastroesophageal reflux disease, H . pylori infection, diabetes mellitus type 2, mitral valve prolapse, left adrenal nodule, hypertensio n, hypothyroidism, dyslipidemia, and vitamin B12 deficiency. PAST SURGICAL HISTORY: Colonoscopy, cholecystectomy, total abdominal hysterectomy and bilateral salp ingo-oophorectomy, appendectomy, bilateral knee arthroscopic surgery, left shoulder surgery, bilatera l cataract surgery, total knee replacement and back surgery. ALLERGIES: IODINE and BENZOIN. CURRENT MEDICATIONS: Glimepiride 6 mg daily, isosorbide mononitrate 30 mg daily, levothyroxine 75 mc g daily, furosemide 20 mg daily, amlodipine 10 mg daily, Benicar 20 mg daily, pravastatin 40 mg daily , aspirin 81 mg daily, clonidine 0.1 mg patch every week, metformin 1000 mg 2 times a day. SOCIAL HISTORY: The patient denies tobacco use or recreational drug use. She reports occasional alc ohol use. FAMILY HISTORY: She denies any family history of premature coronary artery disease. PHYSICAL EXAMINATION: GENERAL: On examination, Ms. Casper is awake and alert, not in acute distress. VITAL SIGNS: She is afebrile. Blood pressure is 109/65, pulse 71, respiratory rate 20, oxygen satur ation 95% on room air. EYES: No scleral icterus. No conjunctival pallor. ENT: Moist mucosal membranes, no oropharyngeal erythema or exudate. NECK: Supple, nontender, trachea is midline. RESPIRATORY: Accessory muscles of breathing are not active. Chest wall movements are symmetric bila terally. LUNGS: Clear to auscultation without wheeze, rhonchi or crepitations. CARDIOVASCULAR: S1 and S2 are heard, regular. Peripheral pulses are palpable. No carotid bruit, no pericardial rub. ABDOMEN: Soft, mild left lower quadrant tenderness, no guarding or rigidity, bowel sounds are heard, no hepatomegaly, no splenomegaly. NEUROLOGIC: Cranial nerves II-XII intact. Deep tendon reflexes are 2+. MUSCULOSKELETAL: Power is 5/5 in all 4 extremities. SKIN: No rashes or subcutaneous nodules. LYMPHATIC: No cervical lymphadenopathy. PSYCHIATRIC: Normal mood, normal affect, patient is oriented to person, place, and time. IMAGING DATA AND LABORATORY DATA: Ms. Casper' labs and investigations were reviewed. I reviewed he r electrocardiogram, which shows normal sinus rhythm, no ST changes to suggest an acute coronary synd benton. I also reviewed CT scan of the abdomen and pelvis, which shows colonic diverticulosis, but no evidence of diverticulitis. She has stable left adrenal adenoma and fatty liver. She has normal whi te count, hemoglobin 10.9, it was 8.9 on 03/24/2018, normal MCV, decreased RDW 11.3, normal platelet count, unremarkable comprehensive metabolic profile, normal lipase and urinalysis that is positive fo r nitrite and small amount of leukocyte esterase. ASSESSMENT AND PLAN: Ms. Casper is a pleasant 83-year-old lady who was seen at [facility] on 05/31/2018. Her problem list includes: 1. Lower gastrointestinal bleed: Most likely diverticular bleed. She will be [facility] to the [facility] for further management. Her hemoglobin and hematocrit will be checked again. The emergency room physician has already spoken to alumina refinery operator personnel security assistant, who has kindly agreed to consult on the patient for opinion and help with further management. At this point in time, patient is hemodynamica lly stable. 2. Urinary tract infection: She has nitrites in urine and a small amount of leukocyte esterase. We will start her on empiric antibiotics and await urine cultures. 3. Hypertension: Resume home medications, monitor vital signs and titrate antihypertensives as need ed. 4. Diabetes mellitus type 2: Start Accu-Cheks and insulin sliding scale. Hold oral antidiabetic me dications at this time. 5. Dyslipidemia: Continue statin. We will hold aspirin for now. 6. DVT prophylaxis with SCDs. Many thanks for allowing me to participate in your patient's care. Please feel free to contact me wi th any questions or concerns. LEVEL OF RISK: High. LEVEL OF COMPLEXITY: High.
[2018-05-31] MEDS: Sodium Chloride 0.9% 1,000 ML IV SCH (19:28)
[2018-05-31] MEDS: cefTRIAXone\\ROCEPHIN 1 GM in Sodium Chloride 0.9% 100 ML IVPB SCH (19:28)
[2018-05-31 19:54] LABS: Hemoglobin 9.9 g/dL (12.0-16.0)
--- NOTE | 2018-05-31 20:03 | CON ---
DATE OF CONSULTATION: 05/31/2018 REQUESTING PHYSICIAN: Dr. Judd. REASON FOR CONSULTATION: GI bleeding. HISTORY OF PRESENT ILLNESS: Galo Casper is a very pleasant 83-year-old woman, a patient of my GI c lang, Dr. Coy Unger. She has a pertinent history of extensive colonic diverticulosis and multip le prior episodes of diverticular bleeding. She was hospitalized in 11/2014 with diverticular bleedi ng with no endoscopy at that time, she was hospitalized again with diverticular bleeding in 03/2016. She underwent EGD and colonoscopy at that time with Dr. Barger with findings only of mild gastritis and extensive colonic diverticulosis. Note her baseline hemoglobin is somewhere between 9 and 11 as of February of this year, hemoglobin was 9. The patient has no chronic gastrointestinal symptoms. She st ates that for the past few days, she has been having some intermittent pain in the left lower quadran t and left upper quadrant of the abdomen, but then starting yesterday about noon, she started passing dark red blood with clots from the rectum, there is no stool mixed in with this. It appears to be a ll pure blood. She had 3 episodes of this yesterday and then 3 episodes so far today. There has bee n no dizziness or lightheadedness. No worsening abdominal pain, no fever, nausea, or vomiting. Upon presentation, she was found to have hemoglobin 10.9, which is an improvement from a couple of months ago. She is hemodynamically stable and she was admitted for further workup. She is currently n.p.o . REVIEW OF SYSTEMS: Full review of systems including constitutional, head, eyes, ears, nose, throat, GI, , cardiovascular, respiratory, musculoskeletal, and neurologic systems is negative except as no deb in the HPI. PAST MEDICAL HISTORY: Osteoarthritis, carpal tunnel disease, prior diverticulitis, prior GI bleeding attributed to diverticular bleeding in 2012, 2014 and 2015, type 2 diabetes, hypertension, hyperlipi demia. PAST SURGICAL HISTORY: Appendectomy, hysterectomy, cholecystectomy, bilateral knee and back surgery, left shoulder surgery. SOCIAL HISTORY: No tobacco or drug use. ALLERGIES: CONTRAST DYE. MEDICATIONS: Metformin, sertraline, pravastatin, naproxen, magnesium oxide, losartan, levothyroxine, isosorbide mononitrate, glimepiride, gabapentin, furosemide, ferrous sulfate 324 mg daily, vitamin D 3, aspirin 81 mg daily. PHYSICAL EXAMINATION: VITAL SIGNS: Temperature 98.9, pulse 81, 97% oxygen saturation on room air. GENERAL: An 83-year-old woman lying in bed comfortably in no distress. SKIN: No jaundice, no rashes were palpable. EYES: No scleral icterus. Extraocular movements intact. ENT: Mucous membranes moist, no oral lesions. LYMPH: No submandibular, supraclavicular lymphadenopathy. THYROID: Nontender to palpation. HEART: Regular rate and rhythm. LUNGS: Clear to auscultation bilaterally. ABDOMEN: Soft, some mild tenderness to palpation in the left lower quadrant. No guarding, rebound t enderness. EXTREMITIES: No peripheral edema. VESSELS: Radial pulses 2+ bilaterally. NEUROLOGICAL: Cranial nerves II-XII intact bilaterally. No focal deficits. LABORATORY STUDIES: Hemoglobin 10.9, WBC 8.4, platelets 317, MCV 91.2, BUN 19, creatinine 1.05. Lip ase 24. Total bilirubin 0.5, alkaline phosphatase 68, AST 17, ALT 16, albumin 4.3. IMAGING STUDIES: CT of the abdomen and pelvis was performed and it showed extensive diverticulosis w ith no evidence of diverticulitis. She also has fatty liver and a small stable adrenal adenoma. ASSESSMENT AND PLAN: 1. Acute lower gastrointestinal bleeding, recurrent, likely representing recurrent diverticular blee ding. 2. Left lower quadrant abdominal pain, mild. 3. History of diverticulosis. The patient's current presentation seems most consistent with recurre nt diverticular bleeding. She had prior episodes in 2012, 2014 and 2016. At this point, she is hemo dynamically stable and hemoglobin is 10.9, which is at or above baseline. However, she has continued to pass blood today. Observe closely. Trend the H&H. I think it would be reasonable to get a tagg ed RBC scan this evening to see if the bleeding can be localized to the right or left side of the col on. This would have more utility than attempting a bowel prep and trying to repeat colonoscopy. We will follow along with the tagged RBC scan results. Please call the GI service any time if the patie nt were to develop hemodynamic instability or require a blood transfusion. GI will follow along. Thank you for the consultation. Please call with questions or concerns.
--- NOTE | 2018-05-31 20:40 | NM ---
NUCLEAR MEDICINE GI BLEED: INDICATIONS: Lower GI bleed with concern for possible diverticular bleed. RADIOPHARMACEUTICAL: Technetium 99m tagged RBCs 27.5 millicuries IV. FINDINGS: There is a focal radiotracer accumulation that occurs in the region of the transverse colon that incr eases with time and moves in a peristaltic fashion. No additional focus of accumulation is noted. IMPRESSION: Findings suspicious for active gastrointestinal bleed in the region of the transverse colon. POS: [facility]
[2018-05-31] MEDS: Losartan 25 MG TAB PO SCH (21:29)
[2018-05-31] MEDS: Atorvastatin Calcium 10 MG TAB PO SCH (21:29)
[2018-05-31 23:13] LABS: Hemoglobin 9.3 g/dL (12.0-16.0)
[2018-06-01 04:41] LABS: #Basophils 0.1 thou/uL (0.0-0.2); #Eosinphils 0.3 thou/uL (0.0-0.7); #Lymphocytes 2.4 thou/uL (1.20-3.40); #Monocytes 0.5 thou/uL (0.11-0.59); %Basophils 0.8 % (0.0-1.0); %Eosinophils 3.2 % (0.0-10.0); %Lymphocytes 29.2 % (21.0-51.0); %Monocytes 5.6 % (0.0-10.0); %Neutrophils 61.3 % (42.0-75.0); Hemoglobin 9.8 g/dL (12.0-16.0); Mean Corpuscular HGB CONC 35.1 g/dL (32.0-36.0); Mean Corpuscular Hemoglobin 32.2 pg (27.0-31.0); Mean Corpuscular Volume 91.8 fL (78.0-98.0); Mean Platelet Volume 7.3 fL (7.4-10.4); Platelet Count 284 thou/uL (130-400); RBC Distribution Width 11.4 % (11.5-14.5); Red Blood Cell (RBC) Count 3.04 mill/uL (4.20-5.40); White Blood Cell (WBC) Count 8.2 thou/uL (4.8-10.8)
[2018-06-01] MEDS: Levothyroxine Sodium 50 MCG TAB PO SCH (05:22)
[2018-06-01 05:24] LABS: Anion Gap 14 mmol/L (10-20); BUN (Urea Nitrogen) 19 mg/dL (9.8-20.1); Calc. Creatinine Clearance 62 mL/min (70-130); Calcium 9.1 mg/dL (7.8-10.44); Carbon Dioxide 20 mmol/L (23-31); Chloride 107 mmol/L (98-107); Estimated GFR-MDRD 59; Glucose 148 mg/dL (83-110); Potassium 3.9 mmol/L (3.5-5.1); Sodium 137 mmol/L (136-145)
[2018-06-01] MEDS: Cyanocobalamin (Vitamin B-12) 1,000 MCG TAB PO SCH (08:51)
[2018-06-01] MEDS: Gabapentin 300 MG CAP PO SCH (08:51)
[2018-06-01] MEDS: Magnesium Oxide 400 MG TAB PO SCH (08:52)
[2018-06-01] MEDS: Ferrous Sulfate 325 MG TAB PO SCH (08:53)
[2018-06-01] MEDS: Sodium Chloride 0.9% 1,000 ML IV SCH ×2 (08:55→20:10)
--- NOTE | 2018-06-01 13:33 | PDOC.PN ---
- Subjective Encounter Start Date: 06/01/18 Encounter Start Time: 08:00 Pt seen for followup re: lower GI bleed. Denies chest pain. Abdo pain better. No nausea or vomiting. - Objective Vital Signs & Weight: Vital Signs (12 hours) Temp Pulse Resp BP Pulse Ox 06/01/18 12:00 99.1 F 73 20 124/58 L 96 06/01/18 08:00 99 F 75 20 143/68 H 98 06/01/18 04:17 97.8 F 65 16 124/61 96 Weight Weight 181 lb 8 oz I&O: 05/31/18 06/01/18 06/02/18 06:59 06:59 06:59 Intake Total 979 Balance 979 Result Diagrams: 06/01/18 04:07 06/01/18 04:07 Additional Labs: Accuchecks 06/01/18 06/01/18 05/31/18 11:14 05:36 19:45 POC Glucose 154 H 171 H 110 Phys Exam - Physical Examination Morbid obesity HEENT: moist MMs, sclera anicteric, oral pharynx no lesions, 2+ tonsils Neck: no nodes, no JVD, supple, full ROM Respiratory: no wheezing, no rales, no rhonchi, clear to auscultation bilateral Cardiovascular: RRR, no rub S1, S2 Gastrointestinal: soft, non-tender, no distention, positive bowel sounds Neurological: moves all 4 limbs Psychiatric: normal affect, A&O x 3 Dx/Plan (1) Lower GI bleed Code(s): K92.2 - GASTROINTESTINAL HEMORRHAGE, UNSPECIFIED Status: Acute Comment: hemoglobin stable, nuclear scan shows colonic bleed. (2) UTI (urinary tract infection) Status: Acute Comment: E. coli UTI, continue ceftriaxone and await cultures (3) Diabetes type 2, controlled Code(s): E11.9 - TYPE 2 DIABETES MELLITUS WITHOUT COMPLICATIONS Status: Chronic Qualifiers: Diabetes mellitus senior living insulin use: without senior living use Diabetes mellitus complication status: without complication Qualified Code(s): E11.9 - Type 2 diabetes mellitus without complications Comment: continue accuchecks, insulin sliding scale (4) Dyslipidemia Code(s): E78.5 - HYPERLIPIDEMIA, UNSPECIFIED Status: Chronic Comment: continue statin (5) GERD (gastroesophageal reflux disease) Code(s): K21.9 - GASTRO-ESOPHAGEAL REFLUX DISEASE WITHOUT ESOPHAGITIS Status: Chronic Comment: stable (6) HTN (hypertension) Code(s): I10 - ESSENTIAL (PRIMARY) HYPERTENSION Status: Chronic Comment: monitor vital signs, titrate antihypertensives as needed (7) Hypothyroidism Code(s): E03.9 - HYPOTHYROIDISM, UNSPECIFIED Status: Chronic Comment: continue synthroid - Plan * . Review of Systems - Review of Systems Constitutional: negative: fever, chills, sweats, weakness, malaise Respiratory: negative: Cough, Shortness of Breath, SOB with Excertion, Pleuritic Pain, Wheezing Cardiovascular: negative: chest pain, palpitations, orthopnea, paroxysmal nocturnal dyspnea, edema, light headedness Gastrointestinal: Abdominal Pain, Hematochezia. negative: Nausea, Vomiting, Diarrhea, Constipation, Melena Genitourinary: negative: Dysuria, Frequency, Incontinence, Hematuria, Retention Skin: negative: Rash, Lesions, Julio, Bruising - Medications/Allergies Allergies/Adverse Reactions: Allergies Allergy/AdvReac Type Severity Reaction Status Date / Time benzoin Allergy Verified 03/16/18 10:37 iodine Allergy Verified 03/16/18 10:37 latex Allergy Rash Verified 03/16/18 10:37 Medications: Current Medications Acetaminophen (Tylenol) 650 mg PO Q4H PRN PRN Reason: Headache/Fever or Pain Atorvastatin Calcium (Lipitor) 10 mg PO HS [facility] Last Admin: 05/31/18 21:29 Dose: 10 mg Bisacodyl (Dulcolax) 10 mg PO DAILYPRN PRN PRN Reason: Constipation Cholecalciferol (Vitamin D3) 1,000 units PO DAILY [facility] Last Admin: 06/01/18 08:52 Dose: 1,000 units Cyanocobalamin (Vitamin B-12) 1,000 mcg PO DAILY [facility] Last Admin: 06/01/18 08:51 Dose: 1,000 mcg Dextrose/Water (Dextrose 50%) 25 gm SLOW IVP PRN PRN PRN Reason: Hypoglycemia Ferrous Sulfate (Feosol) 235 mg PO DAILY [facility] Last Admin: 06/01/18 08:53 Dose: 235 mg Gabapentin (Neurontin) 300 mg PO QAM [facility] Last Admin: 06/01/18 08:51 Dose: 300 mg Glucagon (Glucagon) 1 mg IM PRN PRN PRN Reason: Hypoglycemia Dextrose/Water (D5w) 1,000 mls @ 0 mls/hr IV .Q0M PRN; As Directed PRN Reason: Hypoglycemia Sodium Chloride (Normal Saline 0.9%) 1,000 mls @ 70 mls/hr IV .[id number] [facility] Last Admin: 06/01/18 08:55 Dose: 1,000 mls Ceftriaxone Sodium 1 gm/ (Sodium Chloride) 100 mls @ 200 mls/hr IVPB Q24HR [facility] Last Admin: 05/31/18 19:28 Dose: 100 mls Insulin Human Lispro (Humalog) 0 units SC .MILD SLIDING SCALE PRN PRN Reason: Mild Correctional Scale Isosorbide Mononitrate (Imdur Er) 30 mg PO QAM [facility] Last Admin: 06/01/18 08:51 Dose: 30 mg Levothyroxine Sodium (Synthroid) 50 mcg PO 0600 [facility] Last Admin: 06/01/18 05:22 Dose: 50 mcg Losartan Potassium (Cozaar) 50 mg PO [facility] Last Admin: 05/31/18 21:29 Dose: 50 mg Magnesium Oxide (Magnesium Oxide) 200 mg PO DAILY [facility] Last Admin: 06/01/18 08:52 Dose: 200 mg Sertraline HCl (Zoloft) 50 mg PO [facility] Last Admin: 05/31/18 21:29 Dose: 50 mg
--- NOTE | 2018-06-01 13:42 | PRG ---
DATE OF SERVICE: 06/01/2018 GI INPATIENT DAILY PROGRESS NOTE SUBJECTIVE: Mrs. Casper is feeling well, no abdominal pain or nausea. Her bowel movements have slo wed down. She says she has had 3 episodes of much smaller volume passage of just a few blood clots t juan pablo. She has remained hemodynamically stable. Her hemoglobin seems to have stabilized this morning at 9.8, stable from 9.9 yesterday afternoon. OBJECTIVE: VITAL SIGNS: Temperature 99.1, pulse 73, blood pressure 124/58, 96% oxygen saturation on room air. GENERAL: No acute distress. HEART: Regular rate and rhythm. LUNGS: Clear to auscultation bilaterally. ABDOMEN: Soft and nontender to palpation. EXTREMITIES: No peripheral edema. LABORATORY STUDIES: Hemoglobin 9.8, WBC 8.2 and platelets 284. Sodium 137, potassium 3.9, BUN 19, c reatinine 0.92 and glucose 154. IMAGING DATA: Her nuclear medicine tagged red blood cell scan from yesterday afternoon did demonstra te active gastrointestinal bleeding in the region of the transverse colon. This appears to be just l eft of midline per my read of the images. ASSESSMENT AND PLAN: 1. Diverticular bleeding, from the transverse colon, appears to be resolving. 2. Acute blood loss anemia, stabilized. The tagged RBC scan appeared to localize her diverticular b leeding to the transverse colon. On the other hand, her acute blood loss anemia appears to have stab ilized this morning and stool output has markedly declined, which suggests that the active bleeding h as resolved for now. I discussed with the patient the options of surgical consolidation versus going ahead and observing another night to make sure bleeding does not recur. I think it would be reasona ble to have her on a clear liquid diet and continue to monitor. Monitor hemoglobin and hematocrit in the morning. If there is any concern for recurrence of active bleeding, in the meantime, please let us know and also consult General Surgery. Otherwise, if it appears that everything is stable and th ere has been no recurrence of bleeding by tomorrow, she could potentially be discharged from the hosp ital tomorrow. GI will continue to follow. Please call any time with questions or concerns.
[2018-06-01] MEDS ORDERED: Acetaminophen/Codeine 30-300mg Tablet PO PRN ×3 (17:12→17:26)
[2018-06-01] MEDS: cefTRIAXone\\ROCEPHIN 1 GM in Sodium Chloride 0.9% 100 ML IVPB SCH (17:31)
[2018-06-01] MEDS: Atorvastatin Calcium 10 MG TAB PO SCH (20:06)
[2018-06-01] MEDS: Losartan 25 MG TAB PO SCH (20:06)
[2018-06-02] MEDS: Levothyroxine Sodium 50 MCG TAB PO SCH (05:12)
[2018-06-02 05:35] LABS: #Eosinphils 0.2 thou/uL (0.0-0.7); #Lymphocytes 1.7 thou/uL (1.20-3.40); #Monocytes 0.4 thou/uL (0.11-0.59); %Basophils 0.2 % (0.0-1.0); %Eosinophils 3.1 % (0.0-10.0); %Lymphocytes 27.1 % (21.0-51.0); %Monocytes 6.1 % (0.0-10.0); %Neutrophils 63.4 % (42.0-75.0); Mean Corpuscular HGB CONC 34.6 g/dL (32.0-36.0); Mean Corpuscular Volume 92.5 fL (78.0-98.0); Mean Platelet Volume 7.5 fL (7.4-10.4); Platelet Count 253 thou/uL (130-400); RBC Distribution Width 11.4 % (11.5-14.5); Red Blood Cell (RBC) Count 2.82 mill/uL (4.20-5.40); White Blood Cell (WBC) Count 6.4 thou/uL (4.8-10.8)
[2018-06-02 05:42] LABS: Anion Gap 11 mmol/L (10-20); BUN (Urea Nitrogen) 13 mg/dL (9.8-20.1); Calc. Creatinine Clearance 69 mL/min (70-130); Calcium 8.9 mg/dL (7.8-10.44); Carbon Dioxide 22 mmol/L (23-31); Chloride 109 mmol/L (98-107); Estimated GFR-MDRD 64; Glucose 168 mg/dL (83-110); Potassium 3.9 mmol/L (3.5-5.1); Sodium 138 mmol/L (136-145)
[2018-06-02] MEDS: Magnesium Oxide 400 MG TAB PO SCH (08:37)
[2018-06-02] MEDS: Cyanocobalamin (Vitamin B-12) 1,000 MCG TAB PO SCH (08:37)
[2018-06-02] MEDS: Ferrous Sulfate 325 MG TAB PO SCH (08:38)
[2018-06-02] MEDS: Gabapentin 300 MG CAP PO SCH (08:38)
[2018-06-02] MEDS ORDERED: Nitrofurantoin Monohyd/M-Cryst 100 MG CAP PO SCH (09:00)
[2018-06-02 10:10] LABS: Hemoglobin 8.8 g/dL (12.0-16.0)
[2018-06-02 12:48] VITALS: BP 122/78; TEMP 98.1
--- NOTE | 2018-06-02 22:26 | DIS ---
DATE OF ADMISSION: 05/31/2018 DATE OF DISCHARGE: 06/02/2018 PRIMARY CARE PHYSICIAN: Rudi Loaiza D.O. DISCHARGE DIAGNOSES: 1. Lower gastrointestinal bleed, probably diverticular. 2. Urinary tract infection. CONDITION OF PATIENT ON THE DAY OF DISCHARGE: Stable. I assessed Ms. Casper on the day of discharg e. She denies any chest pain or shortness of breath. She denies any fevers or chills. S1 and S2 ar e heard, regular. Lungs are clear to auscultation bilaterally. Vital signs are stable. DISCHARGE MEDICATIONS: She is being discharged home on Macrobid 100 mg 2 times a day, 13 more doses. Otherwise, her preadmission home medications remain unchanged from history and physical note dictat ed by me on 05/31/2018. CONSULTATIONS DURING THIS HOSPITALIZATION: Gastroenterology, Dr. Snider. HOSPITAL COURSE: Ms. Casper is a pleasant 83-year-old lady who was admitted to [facility] on 05/31/2018 for a lower gastrointestinal bleed, likely diverticular. Please refer to my history and physical note dated 05/31/2018 for further details. She had a nuclear scan, which was suspicious for active GI bleed in the region of the transverse colo n. She was seen by Gastroenterology Service. Her H&H was monitored. Overall, her hemoglobin remain ed stable. The Gastroenterology service has cleared her for discharge. She was also found to have urinary tract infection with Escherichia coli that is sensitive to AMIKACI N, resistant to AMPICILLIN and AMPICILLIN/SULBACTAM, sensitive to CEFEPIME, intermediate sensitivity to CEFOXITIN, resistant to CIPROFLOXACIN and LEVOFLOXACIN, and sensitive to CEFTAZIDIME, CEFTRIAXONE, GENTAMICIN, MEROPENEM, NITROFURANTOIN, PIPERACILLIN, TAZOBACTAM, TOBRAMYCIN, and TRIMETHOPRIM/SULFAM ETHOXAZOLE. She was treated with intravenous ceftriaxone during this hospitalization and is being sw itched to nitrofurantoin at the time of discharge. On the day of discharge, she has hemoglobin 8.8, normal sodium, normal potassium, and creatinine 0.85 . She is advised to have her hemoglobin rechecked through her primary care provider's office. She i s also advised to follow up with her printing grey cloth tender in 2 weeks' time. Many thanks for allowing me to participate in your patient's care. Please feel free to contact me wi th any questions or concerns. DISCHARGE DESTINATION: Home. TOTAL AMOUNT OF TIME SPENT COORDINATING THIS DISCHARGE: 33 minutes.
== END 2018-06-02 15:19 | disposition home or self-care (01) | DRG 378 ==
LOC: ERS 09:00 → 2NO 11:33
PROVIDERS: ADMIT Internal Medicine; ATTEND Internal Medicine
DX: K57.31 Diverticulosis of large intestine without perforation or abscess with bleeding (principal); N39.0 Urinary tract infection, site not specified; D62 Acute posthemorrhagic anemia; I10 Essential (primary) hypertension; E11.9 Type 2 diabetes mellitus without complications; E78.5 Hyperlipidemia, unspecified; K21.9 Gastro-esophageal reflux disease without esophagitis; E03.9 Hypothyroidism, unspecified
CPT/HCPCS: 36415; 36416; 74176; 78278; 80048; 80053; 81003; 81015; 82274; 83690; 85025; 87077; 87086; 87186; 93005; 96374; 96375; A4216; A9604; J0696; J2270; J2405; J7050

== ENCOUNTER 2018-11-11 07:24 | Emergency (ER) | payer MEDICARE, BC ==
[2018-11-11] MEDS ORDERED: Ondansetron PF 4 MG/2 ML Vial ONE (08:02)
[2018-11-11] MEDS ORDERED: Morphine 4 MG/ML VIAL ONE (08:02)
[2018-11-11 08:06] LABS: #Eosinphils 0.1 thou/uL (0.0-0.7); #Lymphocytes 1.7 thou/uL (1.20-3.40); #Monocytes 0.6 thou/uL (0.11-0.59); #Neutrophils 5.2 thou/uL (1.40-6.50); %Basophils 0.2 % (0.0-1.0); %Eosinophils 1.6 % (0.0-10.0); %Lymphocytes 21.8 % (21.0-51.0); %Monocytes 8.2 % (0.0-10.0); %Neutrophils 68.2 % (42.0-75.0); Hemoglobin 11.6 g/dL (12.0-16.0); Mean Corpuscular HGB CONC 32.5 g/dL (32.0-36.0); Mean Corpuscular Hemoglobin 28.6 pg (27.0-31.0); Mean Corpuscular Volume 88.1 fL (78.0-98.0); Mean Platelet Volume 7.8 fL (7.4-10.4); Platelet Count 249 thou/uL (130-400); Red Blood Cell (RBC) Count 4.04 mill/uL (4.20-5.40); White Blood Cell (WBC) Count 7.6 thou/uL (4.8-10.8)
[2018-11-11 08:37] LABS: ALT (SGPT) 14 U/L (8-55); AST (SGOT) 15 U/L (5-34); Alkaline Phosphatase 80 U/L (40-150); Anion Gap 14 mmol/L (10-20); BUN (Urea Nitrogen) 12 mg/dL (9.8-20.1); Bilirubin, Total 0.8 mg/dL (0.2-1.2); Calc. Creatinine Clearance 0 mL/min (70-130); Calcium 9.4 mg/dL (7.8-10.44); Carbon Dioxide 21 mmol/L (23-31); Chloride 104 mmol/L (98-107); Estimated GFR-MDRD 48; Globulin 3.1 g/dL (2.4-3.5); Glucose 137 mg/dL (83-110); Lipase 10 U/L (8-78); Protein, Total 7.1 g/dL (6.0-8.3); Sodium 136 mmol/L (136-145)
[2018-11-11] MEDS ORDERED: Famotidine/PF 20 mg/2ml Vial ONE (09:18)
[2018-11-11] MEDS ORDERED: methylPREDNISolone Sod Succ/PF 125 MG/2 ML VIAL ONE (09:18)
[2018-11-11] MEDS ORDERED: diphenhydrAMINE 50 MG/ML VIAL ONE (09:18)
--- NOTE | 2018-11-11 10:38 | CT ---
CT ABDOMEN AND PELVIS WITH IV CONTRAST: History: Abdominal pain, fever. Comparison: Multiple exams back to 02-29-16. FINDINGS: Small noncalcified nodule at the right posterior lung base is stable. Gallbladder is surgically absen t. Left adrenal adenoma is stable. Calcification throughout the arterial structures. Urinary bladder is unremarkable. Diverticula arise from the colon. At the mid to upper sigmoid colon, circumferential wall thickening and adjacent fat stranding has developed. No free fluid or free air. No abscess cavities are apparent . IMPRESSION: 1. Noncomplicated sigmoid diverticulitis. 2. Atherosclerosis. 3. Chronic type findings are stable. POS: [facility]
[2018-11-11] MEDS ORDERED: ISOVUE-370 76%-LOCM 1 ML ONE (11:21)
[2018-11-11] MEDS ORDERED: Magnesium 2 GM/50 ML BAG (IN WATER) ONE (12:05)
[2018-11-11] MEDS ORDERED: Potassium Chloride 20 MEQ TAB ONE (12:05)
[2018-11-11] MEDS ORDERED: Ciprofloxacin 500 MG TAB ONE (12:05)
[2018-11-11] MEDS ORDERED: metroNIDAZOLE 250 MG TAB ONE (12:05)
== END 2018-11-11 12:52 | disposition home or self-care (01) ==
LOC: ERS 07:24
DX: K57.32 Diverticulitis of large intestine without perforation or abscess without bleeding (principal); E87.6 Hypokalemia; I34.1 Nonrheumatic mitral (valve) prolapse; E11.9 Type 2 diabetes mellitus without complications; I10 Essential (primary) hypertension; E78.5 Hyperlipidemia, unspecified; Z79.82 Long term (current) use of aspirin; Z79.899 Other long term (current) drug therapy; Z79.84 Long term (current) use of oral hypoglycemic drugs
CPT/HCPCS: 74177; 80053; 82274; 83690; 85025; 93005; 94760; 96365; 96375; J1200; J2270; J2405; J2930; S0028

== ENCOUNTER 2019-05-01 14:29 | Emergency (ER) | payer MEDICARE, BC ==
[2019-05-01 14:53] LABS: #Eosinphils 0.1 thou/uL (0.0-0.7); #Lymphocytes 2.1 thou/uL (1.20-3.40); #Monocytes 0.5 thou/uL (0.11-0.59); #Neutrophils 4.8 thou/uL (1.40-6.50); %Basophils 0.2 % (0.0-1.0); %Eosinophils 1.5 % (0.0-10.0); %Lymphocytes 27.9 % (21.0-51.0); %Monocytes 6.1 % (0.0-10.0); %Neutrophils 64.3 % (42.0-75.0); Hemoglobin 12.2 g/dL (12.0-16.0); Mean Corpuscular HGB CONC 35.2 g/dL (32.0-36.0); Mean Corpuscular Hemoglobin 33.4 pg (27.0-31.0); Mean Corpuscular Volume 94.9 fL (78.0-98.0); Mean Platelet Volume 7.4 fL (7.4-10.4); Platelet Count 264 thou/uL (130-400); Red Blood Cell (RBC) Count 3.64 mill/uL (4.20-5.40); White Blood Cell (WBC) Count 7.5 thou/uL (4.8-10.8)
[2019-05-01 15:16] LABS: ALT (SGPT) 10 U/L (8-55); AST (SGOT) 13 U/L (5-34); Albumin 4.2 g/dL (3.4-4.8); Alkaline Phosphatase 69 U/L (40-150); Anion Gap 15 mmol/L (10-20); BUN (Urea Nitrogen) 13 mg/dL (9.8-20.1); Bilirubin, Total 0.6 mg/dL (0.2-1.2); Calc. Creatinine Clearance 0 mL/min (70-130); Calcium 9.7 mg/dL (7.8-10.44); Carbon Dioxide 22 mmol/L (23-31); Chloride 105 mmol/L (98-107); Estimated GFR-MDRD 56; Globulin 3.2 g/dL (2.4-3.5); Glucose 114 mg/dL (83-110); Lipase 21 U/L (8-78); Potassium 3.6 mmol/L (3.5-5.1); Protein, Total 7.4 g/dL (6.0-8.3); Sodium 138 mmol/L (136-145)
[2019-05-01] MEDS ORDERED: Morphine 4 MG/ML VIAL ONE (17:11)
[2019-05-01] MEDS ORDERED: Ondansetron PF 4 MG/2 ML Vial ONE (17:11)
--- NOTE | 2019-05-01 19:41 | CT ---
Abdomen CT without contrast Pelvic CT without contrast HISTORY: Abdominal pain. Past medical history of diverticulitis. Intermittent diarrhea. Comparison 05/31/2018, 11/11/2018 FINDINGS: Abdomen CT: Stable 0.8 x 0.6 cm solid nodule in the right lower lobe. This nodule was reported to be stable since February 2016. Please refer to previous abdomen and pelvic CT report for further detail Limited evaluation of the solid organs due to lack of IV contrast. Grossly no solid organ abnormality No gastrohepatic, retrocrural or periportal lymphadenopathy Bilaterally no obstructive uropathy No mesenteric mass, lymphadenopathy, free air or free fluid Probable fold in the midportion of the gastric body. Definite intraluminal lesion cannot be completel y excluded. Nonemergent endoscopy. Multiple normal caliber small bowel loops. Ileocecal junction is normal. Appendix is not appreciated. No inflammation of the cecal apex. Cecum, ascending colon, trans verse colon are unremarkable. There are diverticula scattered throughout the entire colon. Proximal to mid descending colon is also unremarkable. There is mucosal thickening with pericolonic fat strand ing involving the distal descending colon as well as the entirety of the proximal to mid sigmoid colon. Diverticulitis favored. No abscess. No perforation. There is thickening of the sigmoid mesial colon. Pelvis: Hysterectomy changes. Mildly distended urinary bladder, nonspecific. No pelvic mass, lymphade nopathy or free air. Trace amount of free fluid in the pelvis. Chronic changes of the spine IMPRESSION: 1. Diverticulitis involving the left hemicolon, similar to the previous examination. Nonemergent colo noscopy is recommended. No abscess. No perforation. 2. Probable fold in the greater curvature of the stomach. However, intrinsic process cannot be comple tely excluded. Nonemergent endoscopy.
[2019-05-01 20:07] LABS: Bacteria/HPF 4+ HPF (None Seen); Bilirubin Negative (Negative); Blood, Urine Negative (Negative); Clarity Turbid (Clear); Glucose, Urine (Dipstick) Normal (Negative); Leukocyte 250 Leu/uL (Negative); Nitrite Negative (Negative); Protein, Urine (Dipstick) Negative (Neg-Trace); RBC/HPF 0-3 HPF (0-3); Squamous Epithelial 21-50 HPF (0-3); Urobilinogen Normal mg/dL (Less than 2)
== END 2019-05-01 21:15 | disposition home or self-care (01) ==
LOC: ERS 14:29
DX: K57.32 Diverticulitis of large intestine without perforation or abscess without bleeding (principal); N39.0 Urinary tract infection, site not specified; E11.9 Type 2 diabetes mellitus without complications; I10 Essential (primary) hypertension; E78.5 Hyperlipidemia, unspecified; Z79.84 Long term (current) use of oral hypoglycemic drugs; Z79.82 Long term (current) use of aspirin; Z79.899 Other long term (current) drug therapy
CPT/HCPCS: 36415; 74176; 80053; 81003; 81015; 83690; 85025; 96361; 96374; 96375; J2270; J2405

== ENCOUNTER 2019-05-24 12:39 | Inpatient (IN) | payer MEDICARE, BC ==
[~2019-05-24 12:39] MED LIST: ISOVUE-370 76%-LOCM 1 ML ONE; Iopamidol 370 76% 50 ML VIAL FS ONE
[2019-05-24 13:41] LABS: #Eosinphils 0.1 thou/uL (0.0-0.7); #Lymphocytes 1.8 thou/uL (1.20-3.40); #Monocytes 0.4 thou/uL (0.11-0.59); #Neutrophils 5.5 thou/uL (1.40-6.50); %Basophils 0.2 % (0.0-1.0); %Eosinophils 0.8 % (0.0-10.0); %Lymphocytes 23.2 % (21.0-51.0); %Monocytes 4.8 % (0.0-10.0); Mean Corpuscular HGB CONC 34.8 g/dL (32.0-36.0); Mean Corpuscular Hemoglobin 32.5 pg (27.0-31.0); Mean Corpuscular Volume 93.3 fL (78.0-98.0); Mean Platelet Volume 7.7 fL (7.4-10.4); Platelet Count 296 thou/uL (130-400); RBC Distribution Width 10.9 % (11.5-14.5); Red Blood Cell (RBC) Count 4.01 mill/uL (4.20-5.40); White Blood Cell (WBC) Count 7.8 thou/uL (4.8-10.8)
[2019-05-24 14:13] LABS: ALT (SGPT) 13 U/L (8-55); AST (SGOT) 18 U/L (5-34); Albumin 4.3 g/dL (3.4-4.8); Alkaline Phosphatase 58 U/L (40-150); Anion Gap 15 mmol/L (10-20); BUN (Urea Nitrogen) 13 mg/dL (9.8-20.1); Calc. Creatinine Clearance 0 mL/min (70-130); Calcium 10.1 mg/dL (7.8-10.44); Carbon Dioxide 23 mmol/L (23-31); Chloride 102 mmol/L (98-107); Estimated GFR-MDRD 56; Globulin 3.3 g/dL (2.4-3.5); Glucose 93 mg/dL (83-110); Lipase 20 U/L (8-78); Potassium 3.8 mmol/L (3.5-5.1); Protein, Total 7.6 g/dL (6.0-8.3); Sodium 136 mmol/L (136-145)
[2019-05-24] MEDS ORDERED: Fentanyl 100 MCG/2 ML VIAL ONE (14:59)
[2019-05-24] MEDS ORDERED: methylPREDNISolone Sod Succ/PF 125 MG/2 ML VIAL ONE (15:35)
[2019-05-24] MEDS ORDERED: diphenhydrAMINE 50 MG/ML VIAL ONE (15:35)
[2019-05-24] MEDS ORDERED: Famotidine/PF 20 mg/2ml Vial ONE (15:35)
[2019-05-24 16:14] LABS: Bilirubin Negative (Negative); Blood, Urine Negative (Negative); Clarity Clear (Clear); Glucose, Urine (Dipstick) Normal (Negative); Leukocyte Negative Leu/uL (Negative); Nitrite Negative (Negative); Protein, Urine (Dipstick) Negative (Neg-Trace); Urobilinogen Normal mg/dL (Less than 2)
[2019-05-24] MEDS ORDERED: Sodium Chloride 0.9% 100 ML ONE (17:07)
[2019-05-24] MEDS ORDERED: Piperacillin/Tazobactam 4.5 GM VIAL ONE (17:07)
--- NOTE | 2019-05-24 19:05 | CT ---
CT ABDOMEN AND PELVIS WITH IV CONTRAST: 05/24/19 HISTORY: Abdominal pain. Patient discharged on 05/03/19 with history of diverticulitis and urinary tract infecti on. COMPARISON: 05/01/19 and 11/11/18. FINDINGS: A stable 8 mm right lower lobe pulmonary nodule is again seen. Minimal atelectasis is present at the right lung base. Vascular calcifications are seen in the abdominal aorta and involving the iliac arteries. A left adrenal nodule is again seen. This did demonstrate an attenuation coefficient on a nonenhanced CT scan examination suggestive of an adrenal adenoma. The liver, spleen, pancreas, right adrenal gland, bilateral kidneys, and urinary bladder demonstrate a normal CT appearance. Again noted is circumferential pleural thickening involving the distal descending and proximal sigmoi d colon with associated pericolonic inflammatory changes likely attributable to diverticulitis. Findi ngs are similar to the recent study on 05/01/19. No free intraperitoneal gas is seen and there is no fl uid collection seen to suggest an abscess. Loops of small bowel are normal in caliber. The appendix is not visualized. Postsurgical changes and degenerative changes of the lumbar spine are again noted, with right convexe d scoliosis. There has been no significant interval change compared to the noncontrasted CT scan exam. IMPRESSION: 1. Findings which are again most likely attributable to diverticulitis involving the distal desc ending colon and sigmoid colon without evidence of free intraperitoneal gas or fluid collection seen to suggest an abscess. However, follow-up evaluation is recommended to ensure resolution of the bowel wall thickening and to exclude neoplastic process; although, the length of thickening is greater rahul n expected for neoplastic process. 2. Stable left adrenal nodule shown to represent an adrenal adenoma on prior exam. 3. Stable right lower lobe pulmonary nodule. POS: VARSHA
[2019-05-24] MEDS ORDERED: Ondansetron PF 4 MG/2 ML Vial IVP PRN ×2 (21:24→21:51)
[2019-05-24] MEDS ORDERED: Ondansetron ODT 4 MG TAB SL PRN (21:24)
[2019-05-24] MEDS ORDERED: Morphine 4 MG/ML VIAL SLOW IVP PRN (21:26)
[2019-05-24 21:41] VITALS: BMI 30.4
[2019-05-24] MEDS ORDERED: Diabetic Tussin 200 MG/10 ML UDCUP PO PRN (21:51)
[2019-05-24] MEDS ORDERED: hydrALAZINE 20 MG/ML VIAL SLOW IVP PRN (21:51)
[2019-05-24] MEDS ORDERED: Senokot S 8.6-50 MG TAB PO PRN ×2 (21:51)
[2019-05-24] MEDS ORDERED: Nitroglycerin 0.4 MG TAB (25 Tab Bottle) SL PRN (21:51)
[2019-05-24] MEDS ORDERED: Benzonatate 100 MG CAP PO PRN (21:51)
[2019-05-24] MEDS ORDERED: HumaLOG 300 UNITS/3 ML VIAL SC PRN ×2 (21:51)
[2019-05-24] MEDS ORDERED: Sodium Chloride 0.65% Nasal 44 ML BOT EA NARE PRN (21:51)
[2019-05-24] MEDS ORDERED: Bisacodyl 5 MG TAB PO PRN ×2 (21:51)
[2019-05-24] MEDS ORDERED: cloNIDine 0.1 MG TAB PO PRN (21:51)
[2019-05-24] MEDS ORDERED: Dextrose 5% in Water 1,000 ML IV PRN (21:51)
[2019-05-24] MEDS ORDERED: Calcium Carbonate 500 MG ChewTAB PO PRN (21:51)
[2019-05-24] MEDS ORDERED: Dextrose 50% Abboject 50 ML SYRINGE SLOW IVP PRN (21:51)
[2019-05-24] MEDS: MEROPENEM 1 GM/50 ML 1 GM in Premix Bag 1 BAG IVPB SCH (22:30)
[2019-05-25] MEDS ORDERED: Piperacillin/Tazobactam 4.5 GM in Sodium Chloride 0.9% 100 ML IVPB SCH (01:00)
[2019-05-25] MEDS: Sodium Chloride 0.9% 1,000 ML IV SCH ×3 (01:26→21:00)
[2019-05-25] MEDS: MEROPENEM 1 GM/50 ML 1 GM in Premix Bag 1 BAG IVPB SCH ×3 (05:06→20:59)
[2019-05-25] MEDS: metroNIDAZOLE 500 MG in Premix Bag 1 BAG IVPB SCH ×3 (05:13→20:58)
[2019-05-25 05:53] LABS: #Monocytes 0.1 thou/uL (0.11-0.59); #Neutrophils 7.5 thou/uL (1.40-6.50); %Basophils 0.1 % (0.0-1.0); %Eosinophils 0.1 % (0.0-10.0); %Lymphocytes 11.3 % (21.0-51.0); %Monocytes 0.9 % (0.0-10.0); %Neutrophils 87.6 % (42.0-75.0); Hemoglobin 12.5 g/dL (12.0-16.0); Mean Corpuscular HGB CONC 34.4 g/dL (32.0-36.0); Mean Corpuscular Hemoglobin 31.8 pg (27.0-31.0); Mean Corpuscular Volume 92.4 fL (78.0-98.0); Mean Platelet Volume 7.8 fL (7.4-10.4); Platelet Count 275 thou/uL (130-400); RBC Distribution Width 10.8 % (11.5-14.5); Red Blood Cell (RBC) Count 3.93 mill/uL (4.20-5.40); White Blood Cell (WBC) Count 8.6 thou/uL (4.8-10.8)
[2019-05-25 06:16] LABS: Anion Gap 17 mmol/L (10-20); BUN (Urea Nitrogen) 15 mg/dL (9.8-20.1); Calc. Creatinine Clearance 53 mL/min (70-130); Calcium 9.7 mg/dL (7.8-10.44); Carbon Dioxide 19 mmol/L (23-31); Chloride 103 mmol/L (98-107); Estimated GFR-MDRD 57; Glucose 179 mg/dL (83-110); Potassium 3.7 mmol/L (3.5-5.1); Sodium 135 mmol/L (136-145)
--- NOTE | 2019-05-25 07:37 | HP ---
PRIMARY CARE PHYSICIAN: Dr. Rudi Loaiza. CHIEF COMPLAINT: Abdominal pain and nausea. HISTORY OF PRESENTING ILLNESS: Ms. Casper is a pleasant 84-year-old female with past medical history of diverticulitis leading to lower GI bleed as well as history of diabetes, dyslipidemia, H pylori infection, mitral valve prolapse, hypertension, and hypothyroidism, who presented to the emergency room with above-mentioned complaint. History is mainly obtained by the patient herself and electronic medical records have been reviewed. The patient was last admitted to our facility in May 2018, at which time she was treated for diverticular lower GI bleed and urinary tract infection. She came to the ER again today with 1 day onset of symptoms off abdominal pain. She was recently seen in the ER on 05/03/2019 and discharged after being diagnosed with diverticulitis and UTI on Augmentin. Her symptoms improved a little bit, but then came back with significant worsening. She is now being having diarrhea with loose stools at least 3-4 times a day and has been having chills, abdominal pain and nausea. Denies any blood in the stools or any black-colored stools. Denies any vomiting. Oral intake is very poor. Denies any chest pain, shortness of breath, dysuria, frequency, or urgency. Upon presentation to the ER, she was hypertensive with a blood pressure 154/131, otherwise afebrile and stable. CT scan done in the ER showed possible diverticulitis. She was given Zosyn in the ER along with IV fluids and is now being admitted to the hospital for same. PAST MEDICAL HISTORY: 1. Diverticulitis. 2. Hypertension. 3. Dyslipidemia. 4. Diabetes mellitus. 5. Mitral valve prolapse. 6. Left adrenal nodule. 7. Gastroesophageal reflux disease. 8. Colonic polyps. 9. H. pylori infection. 10. Vitamin B12 deficiency. PAST SURGICAL HISTORY: 1. Colonoscopy in 2016 along with the EGD, which was unremarkable except for a small polyp. 2. Cholecystectomy. 3. Total abdominal hysterectomy and bilateral salpingo-oophorectomy. 4. Appendectomy. 5. Bilateral knee surgery. 6. Left shoulder surgery. 7. Bilateral cataract surgery. 8. Total knee replacement and back surgery. ALLERGIES: IODINE AND BENZOIN. SOCIAL HISTORY: No history of drug, tobacco, or alcohol abuse. Lives at home with her family. FAMILY HISTORY: No family history of premature coronary artery disease. HOME MEDICATIONS: 1. Ferrous sulfate 324 mg daily. 2. Magnesium oxide 200 mg daily. 3. Losartan 1 tablet daily. 4. Levothyroxine 70 mcg daily. 5. Isosorbide mononitrate 30 mg in the morning. 6. Lasix 20 mg in the morning. 7. Aspirin 81 mg daily. 8. Metformin 1000 b.i.d. 9. Glimepiride 4 mg daily. 10. Pravastatin 40 mg at bedtime. REVIEW OF SYSTEMS: A 12-point review of system is done and is negative except for those mentioned in the history and physical. LABORATORY DATA: CBC is unremarkable serum chemistry unremarkable. Lactic acid normal. Lipase normal. Blood sugar 204. Urinalysis unremarkable. IMAGING: CT scan of the abdomen and pelvis by my review shows diverticulitis involving the distal descending colon and sigmoid colon without evidence of intraperitoneal gas or fluid collection. There is some bowel wall thickening and a neoplastic process cannot be excluded. Stable left adrenal nodule and right lower lobe pulmonary nodule are seen. PHYSICAL EXAMINATION: VITAL SIGNS: Most recent vital signs temperature 97.8, pulse of 60, respirations 16, saturating 96% on room air, blood pressure 116/63. GENERAL: No acute distress. Awake, alert, and oriented x3. Lying comfortably in bed. HEENT: Mucous membrane is slightly dry. No oropharyngeal exudate or erythema. Head is normocephalic and atraumatic. Pupils are equal and reactive to light and accommodation. Extraocular movement intact. NECK: Supple without any lymphadenopathy, JVD, or bruit. CHEST: Clear to auscultation without any wheezing, rales, or rhonchi. Rate and rhythm are regular without any murmurs, rubs, or gallops. ABDOMEN: Tender to palpation mostly in the left upper and lower quadrant without any rebound, guarding, or rigidity. Bowel sounds are diminished. EXTREMITIES: Free of any cyanosis, clubbing, or edema. NEUROLOGICAL: Examination is nonfocal. SKIN: Free of any rashes or bruises. Feels warm and dry to touch. PSYCHIATRIC: Normal affect. IMPRESSION AND PLAN: 1. Acute diverticulitis with failed outpatient therapy. The patient will be started on empiric IV antibiotics namely meropenem and metronidazole. She will be on clear liquid diet and we will reconsult Gastroenterology in the morning. She has an EGD and colonoscopy done in 2016, which were unremarkable. She had a GI nuclear medicine scan done in May 2018, which was also within normal limits. At this time, she is not having any GI bleed. Management is rather symptomatic, supportive and conservative. She is hemodynamically stable. 2. Diabetes mellitus. Insulin sliding scale with frequent Accu-Cheks. Hold her oral hypoglycemics until her oral intake is adequate. 3. Hypertension. We will restart her home medications as listed above and monitor and use p.r.n. antihypertensives as well. 4. Dyslipidemia. Continue statin. Hold aspirin for now, in case she needs any further GI workup including EGD and colonoscopy. 5. Deep venous thrombosis prophylaxis with sequential compression devices. DISPOSITION: Ms. Casper is currently being admitted to the hospital with diverticulitis with failed outpatient antibiotic therapy. She is hemodynamically stable. ESTIMATED LENGTH OF STAY: 2 to 3 midnights. Job ID: [id number]
[2019-05-25] MEDS: Ferrous Sulfate 325 MG TAB PO SCH (08:01)
[2019-05-25] MEDS: Famotidine 20 MG TAB PO SCH ×2 (08:02→20:58)
[2019-05-25] MEDS: Furosemide 20 MG TAB PO SCH (08:02)
[2019-05-25] MEDS: Acetaminophen 325 MG TAB PO PRN (08:02)
--- NOTE | 2019-05-25 17:20 | CON ---
DATE OF CONSULTATION: 05/25/2019 REQUESTING PHYSICIAN: Tere Chamberlain MD REASON FOR CONSULTATION: Diverticulitis. HISTORY OF PRESENT ILLNESS: Galo Casper is a very pleasant 84-year-old woman seen in the outpatient setting by my GI colleague, Dr. Coy Unger. She has a pertinent history of recurrent diverticular bleeding with hospitalizations in 2012, 2014, 2016 and 2018. I met her in May 2018 during characteristic episode bleeding lasted for a couple of days. At that time. A tagged RBC scan localized the transverse colon, but bleeding resolved and the patient was able to be discharged without incident. Her last EGD and colonoscopy were in 2015. She had only mild gastritis and pancolonic diverticulosis noted as well as a 5 mm hyperplastic polyp, which was removed and internal hemorrhoids. Over the past year, Ms. Casper has had some issues with intermittent mild spasms in the left lower quadrant, treated with dicyclomine. However, about 3 weeks ago she presented to the Emergency Department with worsening left lower quadrant pain. She had a CT scan, suggestive of sigmoid diverticulitis. She was treated with Augmentin on an outpatient basis. The patient says she completed that antibiotic course. Unfortunately, her symptoms never completely resolved and then after the antibiotics were stopped about a week later, she started again having significant pain in the left lower quadrant. This escalated yesterday. She was having some chills and mild nausea as well. She presented to the Emergency Department yesterday afternoon and a CT of the abdomen and pelvis again showed bowel wall thickening in the distal descending colon and proximal sigmoid colon consistent with acute uncomplicated diverticulitis with no evidence of abscess or any free air. The patient was admitted for IV antibiotics due to failed outpatient antibiotic therapy. Today, the patient states she is feeling a bit better. She continues to have some left lower quadrant pain. She had some nausea with her contrast, but she has been tolerating a clear liquid diet today. Stool studies were sent with C. difficile antigen positive and toxin, PCR pending with elevated fecal lactoferrin. She has remained hemodynamically stable. REVIEW OF SYSTEMS: Full review of systems including constitutional, head, eyes, ears, nose, throat, GI, , cardiovascular, respiratory, musculoskeletal, and neurologic systems is negative except as noted in the HPI. PAST MEDICAL HISTORY: Hypertension, hyperlipidemia, diabetes, mitral valve prolapse, left adrenal nodule, GERD, H. pylori infection previously treated, vitamin B12 deficiency, recurrent diverticular bleeds, last colonoscopy in 2016, remote history of diverticulitis, cholecystectomy, total abdominal hysterectomy, appendectomy, bilateral knee surgery, left shoulder surgery, and back surgery. ALLERGIES: IODINE AND BENZOIN. HOME MEDICATIONS: 1. Ferrous sulfate 324 mg daily. 2. Magnesium oxide 200 mg daily. 3. Losartan. 4. Levothyroxine. 5. Isosorbide mononitrate. 6. Lasix. 7. Aspirin 81 mg daily. 8. Metformin. 9. Glimepiride. 10. Pravastatin. SOCIAL HISTORY: No smoking, alcohol, or drug use. FAMILY HISTORY: Noncontributory. PHYSICAL EXAMINATION: VITAL SIGNS: Temperature 98.2, pulse 64, blood pressure 120/66, and 96% oxygen saturation on room air. GENERAL: No acute distress, lying in bed comfortably. SKIN: No jaundice. No rashes were palpable. HEENT: Eyes, no scleral icterus. Extraocular movements intact. ENT, mucous membranes moist. No oral lesions. LYMPH: No submandibular or supraclavicular lymphadenopathy. THYROID: Nontender to palpation. HEART: Regular rate and rhythm. LUNGS: Clear to auscultation bilaterally. ABDOMEN: Bowel sounds are present. Soft. Tender to palpation in the left lower quadrant, but no guarding rebound tenderness. EXTREMITIES: No peripheral edema. VESSELS: Radial pulses 2+ bilaterally. NEURO: Cranial nerves 2 through 12 intact bilaterally. No focal deficits. LABORATORY STUDIES: WBC 8.6, hemoglobin 12.5, and platelets 275. Sodium 135, potassium 3.7, BUN 15, creatinine 0.94, glucose 118, and calcium 9.7. LFTs all normal with total bilirubin 1.0, alkaline phosphatase 58, AST 18, ALT 13, and lipase 20. Urinalysis negative. IMAGING STUDIES: CT of the abdomen and pelvis performed yesterday demonstrated circumferential thickening of the distal descending and proximal sigmoid colon with associated pericolonic inflammatory changes consistent with diverticulitis, finding similar to prior study on 05/01/2019. There is no free air and no fluid collection seen. Small bowel loops are normal. There is a stable left adrenal nodule and a stable right lower lobe pulmonary nodule. ASSESSMENT AND PLAN: Acute diverticulitis, left-sided, uncomplicated. The patient has failed outpatient antibiotic therapy. Thankfully, there is no CT evidence of any complications of this diverticulitis. She is going to need IV antibiotics for at least a couple of days, and total antibiotic duration for probably two weeks. I agree with the IV meropenem and metronidazole. Otherwise, I agree with supportive care. She is tolerating a clear liquid diet. Hopefully, this can be advanced as tolerated in the next couple of days. I note the C. difficile antigen is positive, awaiting toxin. This seems more consistent with diverticulitis than C. difficile infection; however. She is receiving Flagyl as one of her antibiotics. No indication for colonoscopy in the acute setting. It has been three years since her last examination. The patient can discuss whether or not repeat colonoscopy would be desirable with Dr. Unger, when she follows up as an outpatient. Thank you for the consultation. Please call anytime with questions or concerns. Job ID: [id number]
--- NOTE | 2019-05-25 17:55 | PDOC.HOSPP ---
- Subjective Subjective: Pt seen for followup re: colitis. No diarrhea, feels better. - Objective Vital Signs & Weight: Vital Signs (12 hours) Temp Pulse Resp BP Pulse Ox 05/25/19 16:00 98.0 F 61 20 144/61 H 99 05/25/19 11:06 98.2 F 64 16 120/66 96 05/25/19 07:29 98.0 F 65 18 114/67 95 Weight Weight 161 lb 3 oz Result Diagrams: 05/25/19 05:21 05/25/19 05:21 Additional Labs: Accuchecks 05/25/19 05/25/19 05/25/19 16:31 11:10 05:11 POC Glucose 95 118 H 187 H 05/24/19 21:30 POC Glucose 204 H Labs and MARs reviewed by me ROS - Review of Systems All systems: All other ROS were reviewed and found negative. Cardiovascular: denies: chest pain, palpitations, orthopnea, paroxysmal noc. dyspnea, edema, light headedness Gastrointestinal: denies: nausea, vomitting, abdominal pain, diarrhea, constipation, melena, hematochezia - Medication Medications: Active Medications Generic Name Dose Route Start Last Admin Trade Name Freq PRN Reason Stop Dose Admin Acetaminophen 650 mg 05/24/19 21:51 05/25/19 08:02 Tylenol PO 650 mg Q4H PRN Administration Headache/Fever/Mild Pain (1-3) Cholecalciferol 1,000 units 05/25/19 09:00 05/25/19 08:02 Vitamin D3 PO 1,000 units DAILY MAYANK Administration Famotidine 20 mg 05/25/19 09:00 05/25/19 08:02 Pepcid PO 20 mg BID MAYANK Administration Ferrous Sulfate 325 mg 05/25/19 09:00 05/25/19 08:01 Feosol PO 325 mg DAILY MAYANK Administration Furosemide 20 mg 05/25/19 09:00 05/25/19 08:02 Lasix PO 20 mg QAM MAYANK Administration Meropenem 1 gm/ Device 50 mls @ 100 mls/hr 05/24/19 22:00 05/25/19 12:06 IVPB 50 mls Q8HR MAYANK Administration Sodium Chloride 1,000 mls @ 70 mls/hr 05/25/19 01:30 05/25/19 12:06 Normal Saline 0.9% IV 1,000 mls .[id number] MAYANK Administration Metronidazole 500 mg/ Device 100 mls @ 100 mls/hr 05/25/19 06:00 05/25/19 14: 25 IVPB 100 mls Q8HR MAYANK Administration Isosorbide Mononitrate 30 mg 05/25/19 09:00 05/25/19 08:02 Imdur Er PO 30 mg QAM MAYANK Administration - Exam NAD Eye: anicteric sclera ENT: normocephalic atraumatic Neck: supple Heart: RRR Respiratory: CTAB Gastrointestinal: soft Psychiatric: normal affect, normal behavior Hosp A/P (1) Colitis Code(s): K52.9 - NONINFECTIVE GASTROENTERITIS AND COLITIS, UNSPECIFIED Status : Acute (2) Dyslipidemia Code(s): E78.5 - HYPERLIPIDEMIA, UNSPECIFIED Status: Chronic (3) GERD (gastroesophageal reflux disease) Code(s): K21.9 - GASTRO-ESOPHAGEAL REFLUX DISEASE WITHOUT ESOPHAGITIS Status: Chronic (4) HTN (hypertension) Code(s): I10 - ESSENTIAL (PRIMARY) HYPERTENSION Status: Chronic (5) Hypothyroidism Code(s): E03.9 - HYPOTHYROIDISM, UNSPECIFIED Status: Chronic (6) Obesity (BMI 30-39.9) Code(s): E66.9 - OBESITY, UNSPECIFIED Status: Chronic - Plan plan discussed w/ family, continue antibiotics, out of bed/ambulate Colitis improving, continue ciprofloxacin and metronidazole. BP controlled Continue synthroid. Continue accuchecks, insulin sliding scale.
[2019-05-25] MEDS: Losartan 25 MG TAB PO SCH (20:58)
[2019-05-25] MEDS: Pravastatin Sodium 20 MG TAB PO SCH (20:58)
[2019-05-26] MEDS: Levothyroxine Sodium 50 MCG TAB PO SCH (05:09)
[2019-05-26] MEDS: metroNIDAZOLE 500 MG in Premix Bag 1 BAG IVPB SCH ×3 (05:09→21:33)
[2019-05-26] MEDS: MEROPENEM 1 GM/50 ML 1 GM in Premix Bag 1 BAG IVPB SCH ×3 (05:09→21:35)
[2019-05-26] MEDS: Ferrous Sulfate 325 MG TAB PO SCH (09:34)
[2019-05-26] MEDS: Furosemide 20 MG TAB PO SCH (09:34)
[2019-05-26] MEDS: Famotidine 20 MG TAB PO SCH ×2 (09:34→21:34)
[2019-05-26] MEDS: Acetaminophen 325 MG TAB PO PRN (09:41)
[2019-05-26] MEDS: Vancomycin HCl 25 MG/ML Oral PO SCH ×2 (12:55→17:45)
--- NOTE | 2019-05-26 17:35 | PDOC.HOSPP ---
- Subjective Subjective: Patient seen and examined for Acute Diverticulitis/Colitis. Abd pain improving. 1 loose stool yesterday. No new complaints. No overnight events - Objective Vital Signs & Weight: Vital Signs (12 hours) Temp Pulse Resp BP Pulse Ox 05/26/19 17:29 97.7 F 57 L 18 154/76 H 99 05/26/19 11:18 97.9 F 58 L 18 112/64 95 05/26/19 08:00 98 05/26/19 07:39 97.5 F L 52 L 20 146/68 H 98 Weight Weight 161 lb 3 oz I&O: 05/25/19 05/26/19 05/27/19 06:59 06:59 06:59 Intake Total 4090 Balance 4090 Result Diagrams: 05/25/19 05:21 05/25/19 05:21 Additional Labs: Accuchecks 05/26/19 05/26/19 05/26/19 16:27 11:21 05:28 POC Glucose 84 107 103 05/25/19 21:03 POC Glucose 111 H ROS - Review of Systems All systems: All other ROS were reviewed and found negative. Respiratory: denies: cough, dry, shortness of breath, hemoptysis, SOB with excertion, pleuritic pain, sputum, wheezing, other Cardiovascular: denies: chest pain, palpitations, orthopnea, paroxysmal noc. dyspnea, edema, light headedness, other Gastrointestinal: reports: diarrhea. denies: nausea, vomitting, abdominal pain , constipation, melena, hematochezia, other Genitourinary: denies: dysuria, frequency, incontinence, hematuria, retention, other - Medication Medications: Active Medications Generic Name Dose Route Start Last Admin Trade Name Freq PRN Reason Stop Dose Admin Acetaminophen 650 mg 05/24/19 21:51 05/26/19 09:41 Tylenol PO 650 mg Q4H PRN Administration Headache/Fever/Mild Pain (1-3) Cholecalciferol 1,000 units 05/25/19 09:00 05/26/19 09:34 Vitamin D3 PO 1,000 units DAILY MAYANK Administration Famotidine 20 mg 05/25/19 09:00 05/26/19 09:34 Pepcid PO 20 mg BID MAYANK Administration Ferrous Sulfate 325 mg 05/25/19 09:00 05/26/19 09:34 Feosol PO 325 mg DAILY MAYANK Administration Furosemide 20 mg 05/25/19 09:00 05/26/19 09:34 Lasix PO 20 mg QAM MAYANK Administration Meropenem 1 gm/ Device 50 mls @ 100 mls/hr 05/24/19 22:00 05/26/19 12:56 IVPB 50 mls Q8HR MAYANK Administration Sodium Chloride 1,000 mls @ 70 mls/hr 05/25/19 01:30 05/25/19 21:00 Normal Saline 0.9% IV 1,000 mls .[id number] MAYANK Administration Metronidazole 500 mg/ Device 100 mls @ 100 mls/hr 05/25/19 06:00 05/26/19 15: 26 IVPB 100 mls Q8HR MAYANK Administration Isosorbide Mononitrate 30 mg 05/25/19 09:00 05/26/19 09:35 Imdur Er PO 30 mg QAM MAYANK Administration Levothyroxine Sodium 50 mcg 05/26/19 06:00 05/26/19 05:09 Synthroid PO 50 mcg 0600 MAYANK Administration Losartan Potassium 50 mg 05/25/19 21:00 05/25/19 20:58 Cozaar PO 50 mg HS MAYANK Administration Pravastatin Sodium 40 mg 05/25/19 21:00 05/25/19 20:58 Pravachol PO 40 mg HS MAYANK Administration Vancomycin HCl 125 mg 05/26/19 12:00 05/26/19 12:55 First Vancomycin PO 125 mg Q6HR MAYANK Administration - Exam NAD Heart: RRR, no rubs Respiratory: CTAB, no rales Gastrointestinal: soft, non-tender, normal bowel sounds Extremities: no edema Hosp A/P (1) Acute diverticulitis Code(s): K57.92 - DVTRCLI OF INTEST, PART UNSP, W/O PERF OR ABSCESS W/O BLEED (2) C. difficile colitis Code(s): A04.72 - ENTEROCOLITIS D/T CLOSTRIDIUM DIFFICILE, NOT SPCF RECUR (3) Dyslipidemia Code(s): E78.5 - HYPERLIPIDEMIA, UNSPECIFIED (4) GERD (gastroesophageal reflux disease) Code(s): K21.9 - GASTRO-ESOPHAGEAL REFLUX DISEASE WITHOUT ESOPHAGITIS (5) HTN (hypertension) Code(s): I10 - ESSENTIAL (PRIMARY) HYPERTENSION (6) Hypothyroidism Code(s): E03.9 - HYPOTHYROIDISM, UNSPECIFIED (7) Obesity (BMI 30-39.9) Code(s): E66.9 - OBESITY, UNSPECIFIED - Plan Cont IV Meropenem/Flagyl for Diverticulitis Add PO Vancomycin for C diff Ambulate Consult CM for HHC Reduce IVF to KVO Cont Sliding scale cont other meds as below
[2019-05-26] MEDS: Sodium Chloride 0.9% 1,000 ML IV SCH ×2 (17:46→21:34)
--- NOTE | 2019-05-26 20:38 | PRG ---
DATE OF SERVICE: 05/26/2019 SUBJECTIVE: Ms. Casper has had significant improvement in her abdominal pain today. She has had 2 loose stools today. She was having more watery stool over the last few days prior to today. OBJECTIVE: VITAL SIGNS: Temperature is 97.7, pulse 57, and blood pressure 157/76. GENERAL: She is in no acute distress. Alert and oriented x3. LUNGS: Clear to auscultation bilaterally. HEART: Regular rate and rhythm without murmur. ABDOMEN: Soft. Minimal tenderness in the lower abdomen. Bowel sounds are present. EXTREMITIES: No lower extremity edema. IMPRESSION: 1. Clostridium difficile colitis. 2. Possible left-sided diverticulitis as well. She was treated with Augmentin recently with incomplete response of her abdominal pain. Now, it is unclear if this is recurrent or incompletely treated diverticulitis plus Clostridium difficile or just Clostridium difficile alone. RECOMMENDATIONS: 1. Continue vancomycin four times daily. 2. Probiotics. 3. Continue metronidazole. 4. We will complete a course of meropenem for possible diverticulitis; however, we need to limit this as short of a duration is possible as the C. diff is unlikely to be adequately treated as long as she is on this medication. I would consider stopping the more broad-spectrum gram-negative coverage after 5 days. Job ID: [id number]
[2019-05-26] MEDS: Pravastatin Sodium 20 MG TAB PO SCH (21:34)
[2019-05-26] MEDS: Saccharomyces boulardii 250 MG CAP PO SCH (21:34)
[2019-05-26] MEDS: Losartan 25 MG TAB PO SCH (21:34)
[2019-05-26] MEDS: Acetaminophen 500 MG TAB PO PRN (21:39)
[2019-05-27] MEDS: Vancomycin HCl 25 MG/ML Oral PO SCH ×4 (00:17→17:14)
[2019-05-27] MEDS: MEROPENEM 1 GM/50 ML 1 GM in Premix Bag 1 BAG IVPB SCH ×3 (05:08→20:30)
[2019-05-27] MEDS: metroNIDAZOLE 500 MG in Premix Bag 1 BAG IVPB SCH ×3 (05:09→20:30)
[2019-05-27] MEDS: Levothyroxine Sodium 50 MCG TAB PO SCH (05:11)
[2019-05-27 06:10] LABS: #Basophils 0.1 thou/uL (0.0-0.2); #Eosinphils 0.2 thou/uL (0.0-0.7); #Monocytes 0.4 thou/uL (0.11-0.59); %Basophils 1.1 % (0.0-1.0); %Lymphocytes 18.5 % (21.0-51.0); %Monocytes 6.5 % (0.0-10.0); Mean Corpuscular HGB CONC 35.8 g/dL (32.0-36.0); Mean Corpuscular Hemoglobin 33.3 pg (27.0-31.0); Mean Corpuscular Volume 92.9 fL (78.0-98.0); Mean Platelet Volume 7.3 fL (7.4-10.4); Platelet Count 261 thou/uL (130-400); RBC Distribution Width 10.9 % (11.5-14.5); White Blood Cell (WBC) Count 5.6 thou/uL (4.8-10.8)
[2019-05-27 06:38] LABS: Anion Gap 13 mmol/L (10-20); BUN (Urea Nitrogen) 8 mg/dL (9.8-20.1); Calc. Creatinine Clearance 63 mL/min (70-130); Calcium 9.5 mg/dL (7.8-10.44); Carbon Dioxide 22 mmol/L (23-31); Chloride 107 mmol/L (98-107); Estimated GFR-MDRD 69; Glucose 113 mg/dL (83-110); Magnesium 1.8 mg/dL (1.6-2.6); Potassium 3.5 mmol/L (3.5-5.1); Sodium 138 mmol/L (136-145)
[2019-05-27] MEDS: Famotidine 20 MG TAB PO SCH ×2 (08:53→20:28)
[2019-05-27] MEDS: Furosemide 20 MG TAB PO SCH (08:53)
[2019-05-27] MEDS: Acetaminophen 500 MG TAB PO PRN (11:48)
--- NOTE | 2019-05-27 16:53 | PRG ---
DATE OF SERVICE: 05/27/2019 SUBJECTIVE: Ms. Casper has no abdominal pain today. She is tolerating clear liquid diet well. She has had no diarrhea today. No fever. OBJECTIVE: VITAL SIGNS: Temperature 98.4, pulse 72, and blood pressure 131/63. GENERAL: She is in no acute distress. Alert and oriented x3. LUNGS: Clear to auscultation bilaterally. HEART: Regular rate and rhythm without murmur. ABDOMEN: Soft, nontender, nondistended. Bowel sounds are present. EXTREMITIES: No lower extremity edema. IMPRESSION: 1. Clostridium difficile colitis. 2. Diverticulitis, possibly concurrently. She has greatly symptomatically improved now. RECOMMENDATIONS: 1. Advanced to solid diet. 2. Probiotics. 3. Complete a 14-day course of vancomycin four times daily. 4. We would limit the course of the broad spectrum gram-negative coverage to 5 days and transition to the vancomycin alone as soon as possible. 5. Anticipate discharge home tomorrow if she tolerates her diet well. She could discharge home on vancomycin four times daily and also a short course of levofloxacin and metronidazole to complete a five-day course total of broad-spectrum coverage. 6. I will sign off for now. Please call if GI can be of assistance. Dr. Erwin will be covering the weekend if needed. Job ID: [id number]
[2019-05-27] MEDS: Saccharomyces boulardii 250 MG CAP PO SCH (20:28)
[2019-05-27] MEDS: Losartan 25 MG TAB PO SCH (20:29)
[2019-05-27] MEDS: Pravastatin Sodium 20 MG TAB PO SCH (20:29)
--- NOTE | 2019-05-27 20:45 | PDOC.HOSPP ---
- Subjective Subjective: Patient seen and examined for Colitis/Diverticulitis. No new complaints. No overnight events. 2 BMs earlier today - semisoft - Objective Vital Signs & Weight: Vital Signs (12 hours) Temp Pulse Resp BP Pulse Ox 05/27/19 17:15 98.3 F 64 20 132/70 94 L 05/27/19 11:40 98.4 F 72 20 131/63 94 L 05/27/19 08:50 95 Weight Weight 161 lb 3 oz I&O: 05/26/19 05/27/19 05/28/19 06:59 06:59 06:59 Intake Total 4090 3530 1350 Balance 4090 3530 1350 Result Diagrams: 05/27/19 05:50 05/27/19 05:50 Additional Labs: Accuchecks 05/27/19 05/27/19 05/27/19 17:16 11:41 04:51 POC Glucose 107 132 H 109 ROS - Review of Systems All systems: All other ROS were reviewed and found negative. Respiratory: denies: cough, dry, shortness of breath, hemoptysis, SOB with excertion, pleuritic pain, sputum, wheezing, other Cardiovascular: denies: chest pain, palpitations, orthopnea, paroxysmal noc. dyspnea, edema, light headedness, other - Medication Medications: Active Medications Generic Name Dose Route Start Last Admin Trade Name Freq PRN Reason Stop Dose Admin Acetaminophen 1,000 mg 05/24/19 21:51 05/27/19 11:48 Tylenol PO 1,000 mg Q6H PRN Administration Mild Pain (1-3) Acetaminophen 650 mg 05/24/19 21:51 05/26/19 09:41 Tylenol PO 650 mg Q4H PRN Administration Headache/Fever/Mild Pain (1-3) Cholecalciferol 1,000 units 05/25/19 09:00 05/27/19 08:53 Vitamin D3 PO 1,000 units DAILY MAYANK Administration Famotidine 20 mg 05/25/19 09:00 05/27/19 20:28 Pepcid PO 20 mg BID MAYANK Administration Furosemide 20 mg 05/25/19 09:00 05/27/19 08:53 Lasix PO 20 mg QAM MAYANK Administration Meropenem 1 gm/ Device 50 mls @ 100 mls/hr 05/24/19 22:00 05/27/19 20:30 IVPB 50 mls Q8HR MAYANK Administration Metronidazole 500 mg/ Device 100 mls @ 100 mls/hr 05/25/19 06:00 05/27/19 20: 30 IVPB 100 mls Q8HR MAYANK Administration Sodium Chloride 1,000 mls @ 30 mls/hr 05/26/19 17:37 05/26/19 21:34 Normal Saline 0.9% IV 1,000 mls .Q24H MAYANK Administration Isosorbide Mononitrate 30 mg 05/25/19 09:00 05/27/19 08:53 Imdur Er PO 30 mg QAM MAYANK Administration Levothyroxine Sodium 50 mcg 05/26/19 06:00 05/27/19 05:11 Synthroid PO 50 mcg 0600 MAYANK Administration Losartan Potassium 50 mg 05/25/19 21:00 05/27/19 20:29 Cozaar PO 50 mg HS MAYANK Administration Pravastatin Sodium 40 mg 05/25/19 21:00 05/27/19 20:29 Pravachol PO 40 mg HS MAYANK Administration Saccharomyces Boulardii 250 mg 05/26/19 21:00 05/27/19 20:28 Florastor PO 250 mg HS MAYANK Administration Vancomycin HCl 125 mg 05/26/19 12:00 05/27/19 17:14 First Vancomycin PO 125 mg Q6HR MAYANK Administration - Exam NAD Heart: RRR, no rubs Respiratory: CTAB, no ronchi Gastrointestinal: soft, non-tender, normal bowel sounds Extremities: no cyanosis, no edema Hosp A/P (1) Acute diverticulitis Code(s): K57.92 - DVTRCLI OF INTEST, PART UNSP, W/O PERF OR ABSCESS W/O BLEED (2) C. difficile colitis Code(s): A04.72 - ENTEROCOLITIS D/T CLOSTRIDIUM DIFFICILE, NOT SPCF RECUR (3) Dyslipidemia Code(s): E78.5 - HYPERLIPIDEMIA, UNSPECIFIED (4) GERD (gastroesophageal reflux disease) Code(s): K21.9 - GASTRO-ESOPHAGEAL REFLUX DISEASE WITHOUT ESOPHAGITIS (5) HTN (hypertension) Code(s): I10 - ESSENTIAL (PRIMARY) HYPERTENSION (6) Hypothyroidism Code(s): E03.9 - HYPOTHYROIDISM, UNSPECIFIED (7) Obesity (BMI 30-39.9) Code(s): E66.9 - OBESITY, UNSPECIFIED - Plan plan discussed w/ family Cont IV Meropenem/Flagyl per GI Cont PO Vancomycin for C diff Ambulate cont other meds as above DC in 24 hr if stable [er GI
[2019-05-28] MEDS: Vancomycin HCl 25 MG/ML Oral PO SCH ×3 (00:32→12:47)
[2019-05-28] MEDS: MEROPENEM 1 GM/50 ML 1 GM in Premix Bag 1 BAG IVPB SCH ×2 (05:32→12:45)
[2019-05-28] MEDS: Levothyroxine Sodium 50 MCG TAB PO SCH (05:32)
[2019-05-28] MEDS: metroNIDAZOLE 500 MG in Premix Bag 1 BAG IVPB SCH (05:33)
[2019-05-28 08:13] VITALS: BP 131/73; TEMP 98.4
[2019-05-28] MEDS: Furosemide 20 MG TAB PO SCH (09:13)
[2019-05-28] MEDS: Famotidine 20 MG TAB PO SCH (09:13)
--- NOTE | 2019-05-29 16:54 | DIS ---
DATE OF ADMISSION: 05/24/2019 DATE OF DISCHARGE: 05/28/2019 DISCHARGE DISPOSITION: Home. FOLLOWUP: 1. Follow up with primary care physician, Dr. Rudi Loaiza in 1 week. 2. Follow up with Gastroenterology, Dr. Unger in 2 weeks. DISCHARGE MEDICATIONS: 1. Vancomycin 125 mg orally every 6 hours for next 11 days. 2. Florastor 250 mg daily. 3. All other home medications were left unchanged. INPATIENT BUSINESS MACHINE OPERATOR: Gastroenterology, Dr. Davis. The patient was seen and examined on the day of discharge. Denies any new complaints. No abdominal pain, nausea, vomiting, or diarrhea reported. BRIEF HOSPITAL COURSE: The patient is an 84-year-old female with recent acute diverticulitis, treated with Augmentin, presented to the emergency room with abdominal pain and nausea. CT scan of the abdomen with contrast was consistent with diverticulitis involving the distal descending colon and sigmoid colon without evidence of free intraperitoneal air. She was started on IV meropenem. Stool workup was positive for C diff toxin positive. Campylobacter shiga toxin and stool culture were essentially negative. Stool lactoferrin was positive. The patient was seen by Gastroenterology, Dr. Davis. She was initially placed on clear liquid diet that was gradually advanced. She will complete 14-day course of oral vancomycin. Due to active C diff infection, Dr. Davis recommended discontinuation of IV meropenem at discharge. She was advised to follow up with Dr. Unger as an outpatient. FINAL DIAGNOSES: 1. Acute diverticulitis. 2. Clostridium difficile colitis. 3. Dyslipidemia. 4. Gastroesophageal reflux disease. 5. Hypertension. 6. Hypothyroidism. 7. Obesity with a BMI of 30.5. 8. Recent acute diverticulitis, treated with Augmentin. 9. Stable left adrenal nodule. 10. Stable right lower lobe pulmonary nodule. 11. History of mitral valve prolapse. 12. Gastroesophageal reflux disease. 13. History of Helicobacter pylori infection. 14. History of colonic polyp. 15. Vitamin B12 deficiency. 16. Iodine allergy. PLAN: Plan was discussed with the patient in detail. She stated understanding. Job ID: [id number]
[2019-05-30 05:07] LABS: Norovirus GI Negative (Negative); Norovirus GII Negative (Negative)
--- NOTE | 2019-05-31 13:30 | EKG ---
Test Reason : Blood Pressure : / mmHG Vent. Rate : 082 BPM Atrial Rate : 082 BPM P-R Int : 146 ms QRS Dur : 080 ms QT Int : 376 ms P-R-T Axes : 023 -40 016 degrees QTc Int : 439 ms Normal sinus rhythm Left axis deviation Abnormal ECG Confirmed by MONI PERRY DO ([id number]), photography editor DIAMANTE DUMONT ([id number] on 05/31/2019 1:29:48 PM Referred By: Confirmed By:MONI PERRY DO
== END 2019-05-28 14:28 | disposition home or self-care (01) | DRG 372 ==
LOC: ERS 12:39 → ERHOLD 17:55 → T4-A 21:29
PROVIDERS: ADMIT Internal Medicine; ATTEND Internal Medicine
DX: A04.72 Enterocolitis due to Clostridium difficile, not specified as recurrent (principal); K57.92 Diverticulitis of intestine, part unspecified, without perforation or abscess without bleeding; E11.9 Type 2 diabetes mellitus without complications; E78.5 Hyperlipidemia, unspecified; I10 Essential (primary) hypertension; E03.9 Hypothyroidism, unspecified; Z96.653 Presence of artificial knee joint, bilateral; K21.9 Gastro-esophageal reflux disease without esophagitis; E66.9 Obesity, unspecified; E27.9 Disorder of adrenal gland, unspecified; R91.1 Solitary pulmonary nodule; E53.8 Deficiency of other specified B group vitamins; Z79.899 Other long term (current) drug therapy; Z79.82 Long term (current) use of aspirin; Z79.84 Long term (current) use of oral hypoglycemic drugs; Z68.30 Body mass index [BMI] 30.0-30.9, adult; Z91.041 Radiographic dye allergy status
CPT/HCPCS: 36415; 36416; 74177; 80048; 80053; 81003; 82274; 83605; 83630; 83690; 83735; 85025; 87045; 87046; 87324; 87449; 87493; 87798; 87899; 93005; 96365; 96375; J1200; J2185; J2543; J2930; J3010; J3490; Q9966; Q9967; S0028

== ENCOUNTER 2019-10-14 09:35 | Outpatient (CLI) | payer MEDICARE, BC ==
--- NOTE | 2019-10-14 13:45 | NM ---
THREE PHASE BONE SCAN: HISTORY: Bilateral knee prostheses. Recent left knee prosthesis placement, now with left knee pain. TECHNIQUE: The patient was given 30 millicuries of technetium labeled MDP IV. Three phase study performed to bot h knees with flow and blood pool imaging. Delayed skeletal images of the whole body were obtained. FINDINGS: Blood flow and blood pool images appear normal and symmetric to both knees. Delayed skeletal images show normal skeletal activity at both knees. Prostheses are noted. No abnorma l osseous abnormality. IMPRESSION: Negative three phase bone scan. POS: ROSA MARIA
== END 2019-10-14 09:36 | disposition home or self-care (01) ==
LOC: NM 09:35
PROVIDERS: ATTEND Family Medicine Sports Medicine
DX: M25.562 Pain in left knee (principal); Z96.652 Presence of left artificial knee joint
CPT/HCPCS: 78315; A9503

== ENCOUNTER 2020-11-16 09:22 | Outpatient (CLI) | payer MEDICARE, BC ==
--- NOTE | 2020-11-19 05:23 | RAD ---
Gastrografin enema: 11/16/2020 HISTORY: Evaluate sigmoid stricture, recent attempted colonoscopy through which the scope would not t raverse the sigmoid colon. FINDINGS: [facility] KUB demonstrates residual stool within the region of the colon, most prominent in the region of the hepatic flexure, splenic flexure, and descending colon. A single column Gastrografin enema was performed as the patient did not undergo colonic preparation prior to this study. 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 Retrograde instillation of Gastrografin demonstrates a very severe stricture in the region of the moi ction of the sigmoid colon and distal descending colon, probably measuring approximately 6-8 cm in length. Secondary to markedly slow transit of the contrast media across this stricture and patient di scomfort, the colon is not well assessed proximal to the stricture. There is extensive diverticulosis of the interrogated colon, including the proximal transverse colon through the sigmoid colon. 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 This could be related to malignancy or could be related to stricture associated with chronic/recurrent bouts of diverticulitis. The colon proximal to the junction of the sigmoid colon an d descending colon cannot be adequately assessed.
== END 2020-11-16 09:23 | disposition home or self-care (01) ==
LOC: RAD 09:22
PROVIDERS: ATTEND Internal Medicine Gastroenterology
DX: K56.699 Other intestinal obstruction unspecified as to partial versus complete obstruction (principal)
CPT/HCPCS: 74270

== ENCOUNTER 2020-12-20 14:10 | Outpatient (CLI) | payer MEDICARE, BC ==
[2020-12-20 15:52] LABS: #Basophils 0.1 10x3/uL (0.0-0.2); #Eosinphils 0.1 10x3/uL (0.0-0.5); #Monocytes 0.4 10x3/uL (0.0-1.1); #Neutrophils 5.2 10x3/uL (1.5-8.4); %Basophils 0.6 % (0.0-2.0); %Lymphocytes 32.5 % (18.0-47.0); %Neutrophils 60.6 % (40.0-75.0); Hemoglobin 12.4 g/dL (12.0-15.5); Mean Corpuscular Hemoglobin 31.2 pg (27.0-33.0); Mean Corpuscular Volume 91.9 fl (81.6-98.3); Mean Platelet Volume 10.2 fl (7.4-10.4); Platelet Count 308 10x3/uL (150-450); RBC Distribution Width 11.9 % (11.5-14.5); Red Blood Cell (RBC) Count 3.97 10x6/uL (3.90-5.03); White Blood Cell (WBC) Count 8.6 10x3/uL (3.5-10.5)
[2020-12-20 15:56] LABS: Anion Gap 15 mmol/L (10-20); BUN (Urea Nitrogen) 8 mg/dL (9.8-20.1); Calc. Creatinine Clearance 0 mL/min (70-130); Calcium 9.7 mg/dL (7.8-10.44); Carbon Dioxide 26 mmol/L (23-31); Chloride 102 mmol/L (98-107); Glucose 105 mg/dL (83-110); Potassium 3.5 mmol/L (3.5-5.1); Sodium 139 mmol/L (136-145)
[2020-12-21 01:57] LABS: SARS-CoV-2 PCR by NAA Not Detected (NotDetected)
== END 2020-12-20 14:11 | disposition home or self-care (01) ==
LOC: LABBT 14:10
PROVIDERS: ATTEND Surgery
DX: Z01.818 Encounter for other preprocedural examination (principal); Z20.822 Contact with and (suspected) exposure to COVID-19
CPT/HCPCS: 80048; 85025; 93005; U0003; U0005; 87635; 93010

== ENCOUNTER 2020-12-25 06:53 | Inpatient (IN) | payer MEDICARE, BC ==
[2020-12-11 14:59] VITALS: BMI 29.6
[2020-12-25] MEDS ORDERED: Lidocaine 1% (PF) 30 ML VIAL ONE (08:02)
[2020-12-25] MEDS ORDERED: Midazolam HCl 2 mg/2 ml Vial ONE (08:02)
[2020-12-25] MEDS ORDERED: Fentanyl 100 MCG/2 ML VIAL ONE ×3 (08:02→13:41)
[2020-12-25] MEDS ORDERED: PROPOFOL 200 MG/20 ML VIAL ONE (10:49)
[2020-12-25] MEDS ORDERED: Bupivacaine HCl 0.5%/Epinephrine 1:200,000/PF 30 ml Vial ONE (10:49)
[2020-12-25] MEDS ORDERED: Ondansetron PF 4 MG/2 ML Vial ONE (10:49)
[2020-12-25] MEDS ORDERED: Glycopyrrolate 0.2 MG/ML 5 ML SYRINGE ONE (10:49)
[2020-12-25] MEDS ORDERED: Rocuronium Bromide 10 MG/ML (10ML VIAL) ONE (10:49)
[2020-12-25] MEDS ORDERED: ePHEDrine 50 MG/ML VIAL ONE (10:49)
[2020-12-25] MEDS ORDERED: Lidocaine 1% PF 5 ML VIAL ONE (10:49)
[2020-12-25] MEDS ORDERED: Ketorolac Tromethamine 30 MG/ML VIAL ONE (10:49)
[2020-12-25] MEDS ORDERED: XYLOCAINE 2%-EPI 1:100,000 20 ML VIAL ONE (10:56)
[2020-12-25] MEDS ORDERED: Bupivacaine 0.25% HCL 30 ML VIAL ONE (10:56)
[2020-12-25] MEDS ORDERED: cefOXitin Sodium/Dextrose 2 GM/50 ML BAG ONE (11:11)
[2020-12-25] MEDS ORDERED: Promethazine HCl 25 MG/ML VIAL IM PRN ×3 (12:13→14:29)
[2020-12-25] MEDS ORDERED: Promethazine HCl 25 MG/ML VIAL SLOW IVP PRN (12:13)
[2020-12-25] MEDS ORDERED: Ondansetron HCl/PF 4 MG/2 ML Vial IVP PRN (12:13)
[2020-12-25] MEDS ORDERED: diphenhydrAMINE 25 MG CAP PO PRN (12:18)
[2020-12-25] MEDS ORDERED: diphenhydrAMINE 50 MG/ML VIAL IVP PRN (12:18)
[2020-12-25] MEDS ORDERED: HYDROmorphone 10 mg/100 ml CADD IVPB PRN (12:18)
[2020-12-25] MEDS ORDERED: diphenhydrAMINE 50 MG/ML VIAL IM PRN (12:18)
[2020-12-25] MEDS ORDERED: Naloxone HCl 0.4 mg/ml Vial IV PRN (12:18)
[2020-12-25] MEDS ORDERED: Communication Order-Pharmacy FS PRN (12:30)
[2020-12-25] MEDS ORDERED: hydrALAZINE 20 MG/ML VIAL SLOW IVP PRN (14:29)
[2020-12-25] MEDS ORDERED: Ondansetron PF 4 MG/2 ML Vial IVP PRN (14:29)
[2020-12-25] MEDS ORDERED: Dextrose 50% Abboject 50 ML SYRINGE SLOW IVP PRN (14:29)
[2020-12-25] MEDS ORDERED: Dextrose 5% in Water 1,000 ML IV PRN (14:29)
[2020-12-25] MEDS ORDERED: Promethazine HCl 25 MG/ML VIAL ONE (15:04)
[2020-12-25] MEDS: Ondansetron PF 4 MG/2 ML Vial IVP PRN (19:44)
[2020-12-25] MEDS: Famotidine/PF 20 mg/2ml Vial SLOW IVP SCH (19:44)
[2020-12-25] MEDS: Famotidine 20 MG TAB PO SCH (20:41)
[2020-12-25] MEDS: cefOXitin Sodium 1 GM in Sodium Chloride 0.9% 100 ML IVPB SCH (21:12)
[2020-12-25] MEDS: Sodium Chloride 0.9% 1,000 ML IV SCH (21:13)
[2020-12-25] MEDS: Losartan 25 MG TAB PO SCH (21:46)
[2020-12-26] MEDS ORDERED: cefOXitin Sodium/Dextrose,Iso 1 GM in Premix Bag 1 BAG IVPB SCH (03:15)
[2020-12-26] MEDS: cefOXitin Sodium 1 GM in Sodium Chloride 0.9% 100 ML IVPB SCH (03:58)
[2020-12-26] MEDS: Levothyroxine Sodium 50 MCG TAB PO SCH (03:59)
[2020-12-26] MEDS: Sodium Chloride 0.9% 1,000 ML IV SCH ×2 (04:00→18:39)
[2020-12-26 06:33] LABS: #Monocytes 0.7 thou/uL (0.11-0.59); #Neutrophils 10.8 thou/uL (1.40-6.50); %Basophils 0.2 % (0.0-1.0); %Eosinophils 0.1 % (0.0-10.0); %Lymphocytes 7.7 % (21.0-51.0); %Monocytes 5.9 % (0.0-10.0); %Neutrophils 86.3 % (42.0-75.0); Mean Corpuscular HGB CONC 33.4 g/dL (32.0-36.0); Mean Corpuscular Hemoglobin 31.6 pg (27.0-31.0); Mean Corpuscular Volume 94.6 fL (78.0-98.0); Mean Platelet Volume 7.3 fL (7.4-10.4); Platelet Count 304 thou/uL (130-400); RBC Distribution Width 11.3 % (11.5-14.5); White Blood Cell (WBC) Count 12.6 thou/uL (4.8-10.8)
[2020-12-26 06:54] LABS: Anion Gap 13 mmol/L (10-20); BUN (Urea Nitrogen) 7 mg/dL (9.8-20.1); Calc. Creatinine Clearance 54 mL/min (70-130); Calcium 8.6 mg/dL (7.8-10.44); Carbon Dioxide 22 mmol/L (23-31); Chloride 102 mmol/L (98-107); Glucose 200 mg/dL (83-110); Potassium 3.7 mmol/L (3.5-5.1); Sodium 133 mmol/L (136-145)
[2020-12-26] MEDS: Enoxaparin Sodium 40 MG/0.4 ML SYRINGE SC SCH (09:31)
[2020-12-26] MEDS: Famotidine/PF 20 mg/2ml Vial SLOW IVP SCH ×2 (09:32→20:45)
[2020-12-26] MEDS: Famotidine 20 MG TAB PO SCH ×2 (09:32→20:47)
[2020-12-26] MEDS: Losartan 25 MG TAB PO SCH (20:47)
[2020-12-27] MEDS: HumaLOG 300 UNITS/3 ML VIAL SC PRN ×2 (00:34→05:36)
[2020-12-27] MEDS: Levothyroxine Sodium 50 MCG TAB PO SCH (05:35)
[2020-12-27] MEDS: Ondansetron PF 4 MG/2 ML Vial IVP PRN (05:35)
[2020-12-27] MEDS: Enoxaparin Sodium 40 MG/0.4 ML SYRINGE SC SCH (08:13)
[2020-12-27] MEDS: Famotidine/PF 20 mg/2ml Vial SLOW IVP SCH ×2 (08:14→20:51)
[2020-12-27] MEDS: Famotidine 20 MG TAB PO SCH ×2 (08:14→20:50)
[2020-12-27] MEDS ORDERED: traMADol HCl 50 MG TAB PO PRN ×2 (11:12)
[2020-12-27] MEDS ORDERED: HYDROcodone/Acetaminophen 7.5/325 mg Tablet PO PRN (11:12)
[2020-12-27] MEDS: Sodium Chloride 0.9% 1,000 ML IV SCH (16:44)
[2020-12-27] MEDS: Losartan 25 MG TAB PO SCH (20:50)
[2020-12-28] MEDS: Famotidine/PF 20 mg/2ml Vial SLOW IVP SCH ×2 (05:18→20:02)
[2020-12-28] MEDS: HumaLOG 300 UNITS/3 ML VIAL SC PRN (05:19)
[2020-12-28] MEDS: Levothyroxine Sodium 50 MCG TAB PO SCH (05:19)
[2020-12-28] MEDS: Famotidine 20 MG TAB PO SCH ×2 (05:22→20:02)
[2020-12-28] MEDS: Enoxaparin Sodium 40 MG/0.4 ML SYRINGE SC SCH (08:10)
[2020-12-28] MEDS: Losartan 25 MG TAB PO SCH (20:02)
[2020-12-29] MEDS: Levothyroxine Sodium 50 MCG TAB PO SCH (05:25)
[2020-12-29] MEDS: HumaLOG 300 UNITS/3 ML VIAL SC PRN (05:25)
[2020-12-29 07:57] VITALS: BP 144/77; TEMP 98.1
[2020-12-29] MEDS: Famotidine 20 MG TAB PO SCH (08:39)
[2020-12-29] MEDS: Famotidine/PF 20 mg/2ml Vial SLOW IVP SCH (08:59)
[2020-12-29] MEDS: Enoxaparin Sodium 40 MG/0.4 ML SYRINGE SC SCH (08:59)
== END 2020-12-29 11:53 | disposition home or self-care (01) | DRG 331 ==
LOC: SDC 06:53 → SURG B 13:35
PROVIDERS: ADMIT Surgery; ATTEND Surgery
PROC: 0DBG0ZZ Excision of Left Large Intestine, Open Approach (ICD-10-PCS; principal; 2020-12-25)
PROC: 0D1E0Z4 Bypass Large Intestine to Cutaneous, Open Approach (ICD-10-PCS; 2020-12-25)
DX: K57.33 Diverticulitis of large intestine without perforation or abscess with bleeding (principal); Z96.653 Presence of artificial knee joint, bilateral; Z20.822 Contact with and (suspected) exposure to COVID-19; E78.5 Hyperlipidemia, unspecified; I10 Essential (primary) hypertension; E11.9 Type 2 diabetes mellitus without complications; E03.9 Hypothyroidism, unspecified; K21.9 Gastro-esophageal reflux disease without esophagitis; E78.00 Pure hypercholesterolemia, unspecified; Z90.49 Acquired absence of other specified parts of digestive tract; Z88.8 Allergy status to other drugs, medicaments and biological substances; Z91.040 Latex allergy status; Z90.710 Acquired absence of both cervix and uterus
CPT/HCPCS: 36415; 36416; 80048; 85025; 88307; J0360; J0694; J1650; J1815; J1885; J2001; J2250; J2405; J2550; J2704; J3010; J3490; S0020; S0028

== ENCOUNTER 2022-04-24 09:46 | Outpatient (CLI) | payer MEDICARE, BC | END 2022-04-24 09:47 | disposition home or self-care (01) | LOC: BICMAMMO 09:46 | PROVIDERS: ATTEND Family Medicine | DX: Z13.820 Encounter for screening for osteoporosis (principal); M85.851 Other specified disorders of bone density and structure, right thigh; Z78.0 Asymptomatic menopausal state | CPT/HCPCS: 77080 ==

== ENCOUNTER 2022-08-14 09:01 | Outpatient (CLI) | payer MEDICARE, BC | END 2022-08-14 09:02 | disposition home or self-care (01) | LOC: BICRAD 09:01 | PROVIDERS: ATTEND Neurological Surgery | DX: M47.26 Other spondylosis with radiculopathy, lumbar region (principal); M47.818 Spondylosis without myelopathy or radiculopathy, sacral and sacrococcygeal region | CPT/HCPCS: 72100 ==

== ENCOUNTER 2022-09-04 10:16 | Outpatient (CLI) | payer MEDICARE, BC | END 2022-09-04 10:17 | disposition home or self-care (01) | LOC: TBSIIMAG 10:16 | PROVIDERS: ATTEND Neurological Surgery | DX: M25.552 Pain in left hip (principal); M16.12 Unilateral primary osteoarthritis, left hip ==

== ENCOUNTER 2024-12-01 00:57 | Inpatient (IN) | payer MEDICARE, BC ==
[2024-12-01 01:28] LABS: #Basophils 0.03 10x3/uL (0.0-0.2); %Basophils 0.4 % (0.0-1.0); %Eosinophils 1.8 % (0.0-10.0); %Lymphocytes 36.7 % (21.0-51.0); %Monocytes 6.3 % (0.0-10.0); %Neutrophils 54.5 % (42.0-75.0); Hematocrit 29.5 % (36.0-47.0); Hemoglobin 10.2 g/dL (12.0-16.0); Mean Corpuscular HGB CONC 34.6 g/dL (32.0-36.0); Mean Corpuscular Hemoglobin 33.1 pg (27.0-31.0); Mean Corpuscular Volume 95.8 fL (78.0-98.0); Mean Platelet Volume 9.3 fL (7.4-10.4); Platelet Count 280 10x3/uL (130-400); RBC Distribution Width 11.9 % (11.5-14.5); Red Blood Cell (RBC) Count 3.08 mill/uL (4.20-5.40)
[2024-12-01 01:45] LABS: ALT (SGPT) Less than 7 U/L (Less than 34); AST (SGOT) 19 U/L (11-34); Albumin 4.1 g/dL (3.1-4.5); Alkaline Phosphatase 62 U/L (40-110); Anion Gap 18 mmol/L (10-20); BUN (Urea Nitrogen) 19 mg/dL (9.8-20.1); Bilirubin, Total 0.6 mg/dL (0.3-1.2); Calc. Creatinine Clearance 0 mL/min (70-130); Calcium 9.2 mg/dL (7.8-10.44); Carbon Dioxide 19 mmol/L (23-31); Chloride 107 mmol/L (98-107); Estimated GFR 39; Globulin 3.1 g/dL (2.4-3.5); Glucose 125 mg/dL (83-110); Potassium 3.5 mmol/L (3.5-5.1); Protein, Total 7.2 g/dL (5.8-8.1); Sodium 140 mmol/L (136-145)
[2024-12-01] MEDS ORDERED: Pantoprazole 40 MG VIAL ONE (01:51)
[2024-12-01 01:54] LABS: INR-International Normal Ratio 1.1
[2024-12-01] MEDS ORDERED: diphenhydrAMINE 50 MG/ML VIAL ONE (02:03)
[2024-12-01] MEDS ORDERED: methylPREDNISolone Sod Succ 40 MG VIAL ONE (02:03)
[2024-12-01] MEDS ORDERED: Famotidine/PF 20 mg/2ml Vial ONE (02:04)
[2024-12-01] MEDS ORDERED: Ondansetron ODT 4 MG TAB SL PRN (05:45)
[2024-12-01] MEDS ORDERED: Ondansetron PF 4 MG/2 ML Vial IVP PRN (05:45)
[2024-12-01] MEDS ORDERED: Acetaminophen 325 MG TAB PO PRN (05:45)
[2024-12-01 07:43] VITALS: BMI 25.3
[2024-12-01] MEDS ORDERED: Insulin Lispro 100 UNIT/ML 10 ML VIAL SC PRN (08:56)
[2024-12-01] MEDS ORDERED: Glucagon 1 MG/ML KIT IM PRN (08:56)
[2024-12-01] MEDS ORDERED: Dextrose 50% Abboject 50 ML SYRINGE SLOW IVP PRN (08:56)
[2024-12-01] MEDS ORDERED: Dextrose 5% in Water 1,000 ML IV PRN (08:56)
[2024-12-01] MEDS ORDERED: hydrALAZINE 20 MG/ML VIAL SLOW IVP PRN (08:59)
[2024-12-01] MEDS: Pantoprazole 40 MG VIAL IVP SCH (10:02)
[2024-12-01] MEDS: Sodium Chloride 0.9% 1,000 ML IV SCH (10:02)
[2024-12-01 10:23] LABS: Hematocrit 29.5 % (36.0-47.0); Hemoglobin 10.2 g/dL (12.0-16.0); Mean Corpuscular HGB CONC 34.6 g/dL (32.0-36.0); Mean Corpuscular Hemoglobin 33.1 pg (27.0-31.0); Mean Corpuscular Volume 95.8 fL (78.0-98.0); Mean Platelet Volume 9.8 fL (7.4-10.4); Platelet Count 273 10x3/uL (130-400); RBC Distribution Width 11.9 % (11.5-14.5); Red Blood Cell (RBC) Count 3.08 mill/uL (4.20-5.40)
[2024-12-01 10:41] LABS: Anion Gap 15 mmol/L (10-20); BUN (Urea Nitrogen) 17 mg/dL (9.8-20.1); Calc. Creatinine Clearance 38 mL/min (70-130); Calcium 9.1 mg/dL (7.8-10.44); Carbon Dioxide 18 mmol/L (23-31); Chloride 110 mmol/L (98-107); Estimated GFR 55; Glucose 178 mg/dL (83-110); Potassium 3.7 mmol/L (3.5-5.1); Sodium 139 mmol/L (136-145)
[2024-12-01] MEDS ORDERED: Iopamidol 370 76% 100 ML VIAL ONE (13:45)
[2024-12-01 18:46] LABS: Hematocrit 26.7 % (36.0-47.0); Hemoglobin 9.4 g/dL (12.0-16.0); Mean Corpuscular HGB CONC 35.2 g/dL (32.0-36.0); Mean Corpuscular Hemoglobin 33.2 pg (27.0-31.0); Mean Corpuscular Volume 94.3 fL (78.0-98.0); Mean Platelet Volume 9.4 fL (7.4-10.4); Platelet Count 261 10x3/uL (130-400); RBC Distribution Width 11.8 % (11.5-14.5); Red Blood Cell (RBC) Count 2.83 mill/uL (4.20-5.40)
[2024-12-01] MEDS: GoLYTELY 4,000 ml Bottle PO SCH (18:58)
[2024-12-02 06:59] LABS: #Basophils 0.05 10x3/uL (0.0-0.2); %Basophils 0.7 % (0.0-1.0); %Eosinophils 0.7 % (0.0-10.0); %Lymphocytes 33.1 % (21.0-51.0); %Monocytes 7.3 % (0.0-10.0); %Neutrophils 57.9 % (42.0-75.0); Hematocrit 27.6 % (36.0-47.0); Hemoglobin 9.4 g/dL (12.0-16.0); Mean Corpuscular HGB CONC 34.1 g/dL (32.0-36.0); Mean Corpuscular Hemoglobin 33.1 pg (27.0-31.0); Mean Corpuscular Volume 97.2 fL (78.0-98.0); Mean Platelet Volume 9.5 fL (7.4-10.4); Platelet Count 281 10x3/uL (130-400); RBC Distribution Width 11.9 % (11.5-14.5); Red Blood Cell (RBC) Count 2.84 mill/uL (4.20-5.40)
[2024-12-02 07:11] LABS: Anion Gap 15 mmol/L (10-20); BUN (Urea Nitrogen) 10 mg/dL (9.8-20.1); Calc. Creatinine Clearance 49 mL/min (70-130); Calcium 9.1 mg/dL (7.8-10.44); Carbon Dioxide 19 mmol/L (23-31); Chloride 111 mmol/L (98-107); Estimated GFR 73; Glucose 106 mg/dL (83-110); Potassium 3.4 mmol/L (3.5-5.1); Sodium 142 mmol/L (136-145)
[2024-12-02] MEDS ORDERED: PROPOFOL 40 ML ONE (10:51)
[2024-12-02] MEDS ORDERED: GLYCOPYRROLATE/PF 0.2 MG/ML VIAL ONE (10:53)
[2024-12-02] MEDS ORDERED: Lidocaine 1% PF 5 ML VIAL ONE (10:54)
[2024-12-02] MEDS: metFORMIN 500 MG TAB PO SCH (17:52)
[2024-12-02] MEDS: Potassium Chloride 20 MEQ TAB PO SCH (20:32)
[2024-12-03] MEDS: Levothyroxine Sodium 50 MCG TAB PO SCH (05:27)
[2024-12-03 07:14] LABS: #Basophils 0.04 10x3/uL (0.0-0.2); %Basophils 0.6 % (0.0-1.0); %Eosinophils 1.3 % (0.0-10.0); %Lymphocytes 30.9 % (21.0-51.0); %Monocytes 6.2 % (0.0-10.0); %Neutrophils 60.7 % (42.0-75.0); Hematocrit 27.1 % (36.0-47.0); Hemoglobin 9.2 g/dL (12.0-16.0); Mean Corpuscular HGB CONC 33.9 g/dL (32.0-36.0); Mean Corpuscular Hemoglobin 32.9 pg (27.0-31.0); Mean Corpuscular Volume 96.8 fL (78.0-98.0); Mean Platelet Volume 9.7 fL (7.4-10.4); Platelet Count 254 10x3/uL (130-400)
[2024-12-03 07:55] LABS: Anion Gap 13 mmol/L (10-20); BUN (Urea Nitrogen) 9 mg/dL (9.8-20.1); Calc. Creatinine Clearance 44 mL/min (70-130); Calcium 8.8 mg/dL (7.8-10.44); Carbon Dioxide 19 mmol/L (23-31); Chloride 113 mmol/L (98-107); Estimated GFR 64; Glucose 101 mg/dL (83-110); Sodium 141 mmol/L (136-145)
[2024-12-03 07:59] VITALS: TEMP 98.9
[2024-12-03] MEDS: Ferrous Sulfate 325 MG TAB PO SCH (09:00)
[2024-12-03] MEDS: Furosemide 20 MG TAB PO SCH (09:36)
[2024-12-03] MEDS: Isosorbide Mononitrate 30 MG ER.TAB PO SCH (09:37)
[2024-12-03] MEDS: Losartan 25 MG TAB PO SCH (09:37)
[2024-12-03] MEDS: Simvastatin 10 MG TAB PO SCH (09:37)
[2024-12-03 11:07] VITALS: BP 135/68
== END 2024-12-03 11:30 | disposition home or self-care (01) | DRG 378 ==
LOC: ERS 00:57 → SUATTDRO 00:57 → T4-A 07:19 → OBSVTOIN 12-02 15:48
PROVIDERS: ADMIT Student in an Organized Health Care Education/Training Program; ATTEND Family Medicine
PROC: 0DJ08ZZ Inspection of Upper Intestinal Tract, Via Natural or Artificial Opening Endoscopic (ICD-10-PCS; principal; 2024-12-02)
PROC: 0DJD8ZZ Inspection of Lower Intestinal Tract, Via Natural or Artificial Opening Endoscopic (ICD-10-PCS; 2024-12-02)
DX: K57.31 Diverticulosis of large intestine without perforation or abscess with bleeding (principal); D62 Acute posthemorrhagic anemia; E78.5 Hyperlipidemia, unspecified; E11.9 Type 2 diabetes mellitus without complications; I10 Essential (primary) hypertension; E03.9 Hypothyroidism, unspecified; I34.1 Nonrheumatic mitral (valve) prolapse; Z96.653 Presence of artificial knee joint, bilateral; Z93.3 Colostomy status; Z91.040 Latex allergy status; Z88.8 Allergy status to other drugs, medicaments and biological substances; Z79.899 Other long term (current) drug therapy; Z90.710 Acquired absence of both cervix and uterus; Z90.49 Acquired absence of other specified parts of digestive tract; Z98.890 Other specified postprocedural states
CPT/HCPCS: 36415; 36416; 74177; 80048; 80053; 85025; 85610; 86850; 86900; 86901; 94760; 96361; 96374; 96375; 96376; G0378; J1200; J2470; J2704; J2919; J3490; J7030; Q9967

== ENCOUNTER 2024-12-29 09:47 | Outpatient (CLI) | payer MEDICARE, BC | END 2024-12-29 09:48 | disposition home or self-care (01) | LOC: BICMAMMO 09:47 | PROVIDERS: ATTEND Family Medicine | DX: M81.0 Age-related osteoporosis without current pathological fracture (principal); M85.851 Other specified disorders of bone density and structure, right thigh; M85.852 Other specified disorders of bone density and structure, left thigh | CPT/HCPCS: 77080 ==